=== PATIENT | male | born 1970 | race Caucasian/White ===

== ENCOUNTER 2017-02-22 06:50 | Inpatient (IN) | payer MEDICAID ==
--- NOTE | 2017-02-22 06:58 | EDPHY ---
H & P Stated Complaint: seizure, postictal on scene per EMS Time Seen by Provider: 02/22/17 06:52 HPI/ROS: Chief Complaint: Seizure HPI: 46-year-old male with a known seizure disorder and type 1 diabetes brought in from the retirement today after having a witnessed tonic-clonic seizure of unknown duration. On EMS arrival the patient was very postictal. He has had some nausea and vomiting. He has not been able to provide any history. He did pull out his IV. On arrival to the ED patient is awake alert and is admitting that he has a history of seizure disorder. Patient states he has been taking his medicines. ROS: 10 point Review of Systems is negative except as noted in the HPI. PMH: Type 1 diabetes Seizure disorder Hypertension Hyperlipidemia Developmental delay Social History: No smoking, no alcohol, no recreational drug use Family History: non-contributory Physical Exam: Gen: Awake, Alert, confused, diaphoretic HEENT: Nose: no rhinorrhea Eyes: PERRLA, EOMI Mouth: Moist mucosa tongue abrasions consistent with seizure Neck: Supple, no JVD Chest: nontender, lungs clear to auscultation Heart: S1, S2 normal, no murmur, tachycardic Abd: Soft, non-tender, no guarding Back: no CVA tenderness, no midline tenderness Ext: no edema, non-tender Skin: no rash Neuro: CN II-XII intact, Sensation grossly intact, Strength 5/5 in bilateral upper and lower extremities - Medical/Surgical History Hx Asthma: No Hx Chronic Respiratory Disease: No Hx Diabetes: No Hx Cardiac Disease: No Hx Renal Disease: No Hx Cirrhosis: No Hx Alcoholism: No Hx HIV/AIDS: No Hx Splenectomy or Spleen Trauma: No Other PMH: SEIZURE DISORDER, COLON CANCER, IDDM type 1 - Social History Smoking Status: Light smoker Constitutional: Initial Vital Signs Temperature (C) 36.4 C 02/22/17 06:54 Heart Rate 132 H 02/22/17 06:54 Respiratory Rate 16 02/22/17 06:54 Blood Pressure 108/95 H 02/22/17 06:54 O2 Sat (%) 88 L 02/22/17 06:54 O2 Delivery Mode Room Air Allergies/Adverse Reactions: No Known Allergies Allergy (Unverified 01/23/16 16:48) Home Medications: Medication Instructions Recorded Atorvastatin Calcium [Lipitor 20 20 mg PO DAILY 01/23/16 mg (*)] Divalproex ER [Depakote ER 500 MG 500 mg PO BID 01/23/16 (*)] LEVETIRACETAM [Keppra 1000 mg] 1,000 mg PO BID 01/23/16 Insulin Glargine [Lantus 100 10 units SC DAILY #1 vial 01/24/16 UNITS/ML (*)] Insulin Lispro [humALOG LISPRO 100 2 - 4 unit SC TIDMEAL #1 vial 01/24/16 units/ml (*)] Medical Decision Making - Diagnostics EKG Interpretation: ECG time 7:03 a.m. atrial fibrillation with a rate of 155 normal axis, prolonged QT with a QTC of 521, anterior lateral ischemia with ST depression in V3 through V6 ED Course/Re-evaluation: 705 ECG noted patient is in atrial fibrillation with a rate of 155 with lateral ischemia. Patient also vomiting. Will start diltiazem, Reglan, will also give Ativan as both antiemetic and for seizure prophylaxis. 729 heart rate down to 105 after 10 mg of diltiazem IV. Patient is unable to tell me what medications he takes for seizure. In reviewing his records he has received both Depakote and Keppra in the system here. I suspect he is compliant with his seizure medications because his blood sugars are in the 200s with type 1 diabetes indicates that he has been taking his normal insulin. Patient does assure me that he is compliant with medications. He has not have a elevation in his white blood cell count. Electrolytes show hypokalemia otherwise pretty unremarkable. I have paged the hospitalist and plan for admission for further evaluation. [address] Cantrell, hospitalist. Will admit to the step-down unit under Dr. Isabel. - Data Points Laboratory Results: Laboratory Results 02/22/17 07:00 02/22/17 07:00 02/22/17 02/22/17 02/22/17 07:00 07:00 07:00 WBC 8.83 10^3/uL 10^3/uL (3.80-9.50) RBC 5.64 10^6/uL 10^6/uL (4.40-6.38) Hgb 17.7 g/dL H g/dL (13.7-17.5) POC Hgb 18.0 gm/dL H gm/dL (14.5-17.3) Hct 51.2 % H % (40.0-51.0) POC Hct 53 % H % (42.8-50.6) MCV 90.8 fL fL (81.5-99.8) MCH 31.4 pg pg (27.9-34.1) MCHC 34.6 g/dL g/dL (32.4-36.7) RDW 11.8 % % (11.5-15.2) Plt Count 310 10^3/uL 10^3/uL (150-400) MPV 8.7 fL fL (8.7-11.7) Neut % (Auto) 35.4 % L % (39.3-74.2) Lymph % (Auto) 55.0 % H % (15.0-45.0) [place] % (Auto) 5.8 % % (4.5-13.0) Eos % (Auto) 2.0 % % (0.6-7.6) Baso % (Auto) 0.6 % % (0.3-1.7) Nucleat RBC Rel Count 0.0 % % (0.0-0.2) Absolute Neuts (auto) 3.12 10^3/uL 10^3/uL (1.70-6.50) Absolute Lymphs (auto) 4.86 10^3/uL H 10^3/uL (1.00-3.00) Absolute Monos (auto) 0.51 10^3/uL 10^3/uL (0.30-0.80) Absolute Eos (auto) 0.18 10^3/uL 10^3/uL (0.03-0.40) Absolute Basos (auto) 0.05 10^3/uL 10^3/uL (0.02-0.10) Absolute Nucleated RBC 0.00 10^3/uL 10^3/uL (0-0.01) Immature Gran % 1.2 % H % (0.0-1.1) Immature Gran # 0.11 10^3/uL H 10^3/uL (0.00-0.10) POC Sodium 144 mEq/L mEq/L (134-144) Sodium 143 mEq/L mEq/L (134-144) POC Potassium 3.1 mEq/L L mEq/L (3.3-5.0) Potassium 3.4 mEq/L L mEq/L (3.5-5.2) POC Chloride 103 mEq/L mEq/L (96-108) Chloride 104 mEq/L mEq/L (97-110) Carbon Dioxide 22 mEq/l mEq/l (22-31) Anion Gap 17 mEq/L H mEq/L (8-16) POC BUN < 3 mg/dL L mg/dL (7-23) BUN 4 mg/dL L mg/dL (7-23) Creatinine 0.8 mg/dL mg/dL (0.7-1.3) POC Creatinine 0.7 mg/dL L mg/dL (0.8-1.5) Estimated GFR > 60 Glucose 232 mg/dL H mg/dL (70-100) POC Glucose 233 mg/dL H mg/dL (70-100) Calcium 9.1 mg/dL mg/dL (8.5-10.4) Troponin I < 0.012 ng/mL ng/mL (0-0.034) Medications Given: Discontinued Medications Diltiazem HCl (Cardizem 25 Mg/5 Ml Vial) 20 mg IVP EDNOW ONE Stop: 02/22/17 07:09 Last Admin: 02/22/17 07:17 Dose: 10 mg Diltiazem HCl 125 mg/ Dextrose 125 mls @ 0 mls/hr IV EDNOW ONE; As Directed PRN Reason: Protocol Stop: 02/22/17 07:09 Last Admin: 02/22/17 07:39 Dose: 125 mls Sodium Chloride (Ns) 1,000 mls @ 0 mls/hr IV ONCE ONE PRN Reason: Wide Open Stop: 02/22/17 07:11 Last Admin: 02/22/17 07:41 Dose: 1,000 mls Lorazepam (Ativan Injection) 1 mg IVP EDNOW ONE Stop: 02/22/17 07:09 Last Admin: 02/22/17 07:18 Dose: 1 mg Metoclopramide HCl (Reglan Injection) 10 mg IVP EDNOW ONE Stop: 02/22/17 07:09 Last Admin: 02/22/17 07:18 Dose: 10 mg Point of Care Test Results: 02/22/17 07:00 POC Sodium 144 POC Potassium 3.1 L POC Chloride 103 POC BUN < 3 L POC Creatinine 0.7 L POC Glucose 233 H Departure - Departure Disposition: [facility] Inpatient Acute Clinical Impression: Atrial fibrillation, Seizure disorder Referrals: Patient,NotPresent [Primary Care Provider] - As per Instructions
--- NOTE | 2017-02-22 07:05 | CPEKG ---
Heart Rate: 155 RR Interval: 387 QRSD Interval: 84 QT Interval: 324 QTC Interval: 521 QRS [place]: 45 T Wave [place]: 20 EKG Severity - ABNORMAL ECG - EKG Impression: ATRIAL FIBRILLATION, V-RATE 127-172 EKG Impression: ST DEPRESSION, CONSIDER ISCHEMIA, ANT-LAT LDS EKG Impression: PROLONGED QT INTERVAL Electronically Signed By: Jaz Beyer 22-Feb-2017 07:09:11
[2017-02-22] MEDS ORDERED: METOCLOPRAMIDE 10 MG/2 ML VIAL IVP ONE (07:08)
[2017-02-22] MEDS ORDERED: LORazepam 2 MG/ML INJ IVP ONE (07:08)
[2017-02-22] MEDS ORDERED: DILTIAZEM 25 MG/5 ML VIAL IVP ONE (07:08)
[2017-02-22] MEDS ORDERED: DILTIAZEM 125 MG in D5W 125 ML IV ONE (07:08)
[2017-02-22] MEDS ORDERED: NS 1,000 ML IV ONE (07:10)
[2017-02-22 07:27] LABS: ANION GAP 17 mEq/L (8-16); CALCIUM 9.1 mg/dL (8.5-10.4); CARBON DIOXIDE 22 mEq/l (22-31); CHLORIDE 104 mEq/L (97-110); CREATININE 0.8 mg/dL (0.7-1.3); GLOMERULAR FILTRATION RATE > 60; GLUCOSE 232 mg/dL (70-100); POTASSIUM 3.4 mEq/L (3.5-5.2); SODIUM 143 mEq/L (134-144)
[2017-02-22 07:28] LABS: % IMMATURE GRANULYOCYTES 1.2 % (0.0-1.1); ABSOLUTE IMMATURE GRANULOCYTES 0.11 10^3/uL (0.00-0.10); ADD DIFF? NO; ADD MORPH? NO; ADD SCAN? NO; ATYPICAL LYMPHOCYTE FLAG 20 (0-99); FRAGMENT RBC FLAG 0 (0-99); HEMATOCRIT 51.2 % (40.0-51.0); HEMOGLOBIN 17.7 g/dL (13.7-17.5); LEFT SHIFT FLG 10 (0-99); LIPEMIA HEMOLYSIS FLAG 90 (0-99); MEAN CELL HEMOGLOBIN 31.4 pg (27.9-34.1); MEAN CELL HEMOGLOBIN CONCENTR. 34.6 g/dL (32.4-36.7); MEAN CELL VOLUME 90.8 fL (81.5-99.8); MEAN PLATELET VOLUME 8.7 fL (8.7-11.7); PLATELET CLUMPS FLAG 20 (0-99); PLATELET COUNT 310 10^3/uL (150-400); RED BLOOD CELL COUNT 5.64 10^6/uL (4.40-6.38); RED CELL DISTRIBUTION WIDTH 11.8 % (11.5-15.2)
[2017-02-22 07:39] LABS: TROPONIN I < 0.012 ng/mL (0-0.034)
[2017-02-22] MEDS ORDERED: LORazepam 2 MG/ML INJ IVP PRN (09:16)
[2017-02-22] MEDS ORDERED: PROTOCOL POTASSIUM 1 DOSE MISC PRN ×2 (09:16)
[2017-02-22] MEDS ORDERED: PROTOCOL CALCIUM 1 DOSE IV PRN (09:16)
[2017-02-22] MEDS ORDERED: D50W 25 GM/50 ML SYR IVP PRN (09:16)
[2017-02-22] MEDS ORDERED: PROTOCOL MAGNESIUM 1 DOSE IV PRN (09:16)
[2017-02-22] MEDS ORDERED: ACETAMINOPHEN 325 MG TAB PO PRN (09:16)
[2017-02-22] MEDS ORDERED: HYDROmorphONE/DILAUDID 1 MG/ML SYR IVP PRN (09:16)
[2017-02-22] MEDS ORDERED: PROTOCOL K PHOSPHATE 1 DOSE IV PRN (09:16)
[2017-02-22] MEDS ORDERED: ONDANSETRON 4 MG/2 ML VIAL IVP PRN (09:16)
[2017-02-22] MEDS ORDERED: ONDANSETRON DISINTEGRATING 4 MG TAB PO PRN (09:16)
[2017-02-22] MEDS ORDERED: ALBUTEROL 3 ML DEYVIAL IH PRN (09:16)
[2017-02-22] MEDS ORDERED: levETIRAcetam 1,000 MG in NS 100 ML IV ONE (09:21)
[2017-02-22] MEDS ORDERED: DILTIAZEM 125 MG in D5W 125 ML IV SCH (10:00)
[2017-02-22] MEDS ORDERED: ALTEPLASE 2 MG VIAL IVP PRN (11:05)
--- NOTE | 2017-02-22 11:18 | CPEKG ---
Heart Rate: 79 RR Interval: 759 QRSD Interval: 88 QT Interval: 392 QTC Interval: 450 QRS [place]: -17 T Wave [place]: 25 EKG Severity - ABNORMAL ECG - EKG Impression: ATRIAL FIBRILLATION, V-RATE 66-100 EKG Impression: BORDERLINE LEFT AXIS DEVIATION Electronically Signed By: Jacky Fish 23-Feb-2017 06:52:27
--- NOTE | 2017-02-22 11:48 | PDCONSULT ---
[employer] Note: HOSPITAL NEUROLOGY CONSULT REQUESTING: Halley Pierre MD REASON: seizure HPI: This is a 46-year-old gentleman with a history of epilepsy, cognitive developmental delay, hypertension, hyperlipidemia, DM1 who presented to our facility today due to a witnessed generalized convulsion. The patient resides at the [facility] and early this morning apparently had a witnessed generalized convulsion. The patient is amnestic of these events. He states that he recalls awakening in the emergency department feeling very shaky. He states he is indeed homeless and gets his neurologic care from a provider and [place]. He endorses compliance with valproic acid ER 500 mg twice daily as well as levetiracetam 1000 mg twice daily. He states his last seizure was about a year ago and he is unsure of the circumstances surrounding this breakthrough seizure. Patient states today he is feeling back to his baseline, just a little bit tired. He denies any focal neurologic deficits. He denies any illness or toxic ingestions this past week. On his emergency room evaluation, patient was found to be in new onset atrial fibrillation with rapid ventricular rate and possible cardiac ischemia for which he is currently being stabilized from a cardiac perspective. ROS: As per the HPI, otherwise a complete 12 point ROS was performed and is negative ALLERGIES AND MEDS: As recorded in the EMR - reviewed and reconciled PFSH: As per the intake H&P by Dr. Pierre from today EXAM: VS reviewed in EMR GEN: WDWN laying in NAD HEENT: NCAT, sclera anicteric, conjunctiva not injected, MMM, oropharynx clear, no scalp tenderness, missing multiple teeth NECK: supple, nontender, no meningismus CV: RRR s1 s2 wo m/r/c/g. Carotid pulses 2+ wo bruit NEURO: MS: a bit drowsy, but maintains attention during conversation. Oriented to all spheres. Speech nondysarthric. No language disturbance. Follows commands. Attends to both sides. Recent/remote memory grossly intact. Mood euthymic. Adequate fund of knowledge. CN: pupils 4mm round and reactive. Intolerant of fundoscopy. VFF. Primary gaze centered. Some restricted upgaze, but otherwise full ocular motility. Facial sensation preserved. Face symmetric. Hearing grossly intact to finger rub. Palatoglossal movements intact. Shoulder shrug and head turn strong. MOTOR: normal bulk/tone. No adventitial movements. Full power throughout. SENSORY: intact to all modalities throughout. No extinction. COORD: no ataxia FN/HS. Fanta preserved. Romberg neg. REFLEX: plantars down. No clonus. DTRS trace. GAIT: deferred to PT safety eval DATA REVIEW: Labs reviewed in EMR PERSONALLY INTERPRETED RESULTS AND DATA: None IMPRESSION AND RECOMMENDATIONS: // BREAKTHROUGH SEIZURE // NEW ONSET AFIB RVR Patient with breakthrough seizure without any obvious provocative factor. He endorses compliance with his anti-seizure medications. No obvious toxic/ metabolic disturbance. Denies illicit substance use. ? triggered by stress from cardiac ischemia/arrhythmia. Conversely, could have had an embolic shower with cortical involvement triggering seizure in a patient at risk for seizure. Will check VPA and LVT levels to assess for compliance. Cont current home dosing of VPA and LVT. Add UDS. MRI brain wo to evaluate for subclinical cortical ischemia in the setting of new onset afib with breakthrough seizure. Cont seizure safety precautions. Supportive measures and further cardiac, metabolic, infectious screening/ stabilization per primary team. He was counseled on seizure safety precautions, such as not climbing heights, not swimming/tub bathing alone, not operating heavy machinery, and not performing other activities that could put himself or others in harm's way. He was also counseled on driving restrictions for 90 days per [place] state law.
[2017-02-22] MEDS ORDERED: VALPROATE SODIUM 500 MG in D5W 50 ML IV SCH (12:00)
--- NOTE | 2017-02-22 12:31 | PDGENHP ---
History and Physical - Chief Complaint seizure - History of Present Illness 46 yo M with mild DD, sz d/o and DM1 admitted s/p seizure prior to admission. Patient notes that he has been compliant with his seizure medications although he also admits that he does not know what they are. He currently resides in a alf although he has parents in [place] who he states are very involved in his care and help him with his medications etc. He states that he felt fine yesterday, but today felt a bit shaky, as if he were possibly getting ill or about to have a fever, and the next thing he knew he was in the hospital after being told he had a seizure. He was found to be in a fib w/rvr in the ER. He does not think he has ever had a fib or other hear issues in the past. He denies fevers or chills, denies pain anywhere, denies any sob or chest pain. He does not recall the last time he had a seizure but thinks it has been a long time. He has a neurologist that he sees somewhere in [place] and cannot recall that doctors name either. History Information - Allergies/Home Medication List Allergies/Adverse Reactions: No Known Allergies Allergy (Unverified 01/23/16 16:48) Home Medications: Atorvastatin Calcium [Lipitor 20 mg (*)] 20 mg PO DAILY 01/23/16 [Last Taken ] LEVETIRACETAM [Keppra 1000 mg] 1,000 mg PO BID 01/23/16 [Last Taken 01/23/16] Divalproex Sodium [Depakote] 500 mg PO BID 02/22/17 [Last Taken Unknown] FLUoxetine [Prozac 20 MG (*)] 40 mg PO BID 02/22/17 [Last Taken Unknown] I have personally reviewed and updated: family history, medical history, social history, surgical history - Past Medical History cancer (colon per chart review), diabetes type 1, hyperlipidemia, psychiatric history (depression), seizures - Surgical History Reports: no pertinent surgical hx - Family History Positive for: non-pertinent - Social History Smoking Status: Light smoker Alcohol Use: None Drug Use: None Additional social history: homeless, residing in alf, has parents involved in his care Review of Systems ROS: 10pt was reviewed & negative except for what was stated in HPI & below Physical Exam Temp Pulse Resp BP Pulse Ox 36.9 C 90 16 110/78 98 02/22/17 08:23 02/22/17 08:23 02/22/17 08:23 02/22/17 08:23 02/22/17 08:23 Constitutional: no apparent distress, appears nourished Eyes: PERRL Ears, Nose, Mouth, Throat: moist mucous membranes, hearing normal Cardiovascular: irregularly irregular, tachycardia, No edema Respiratory: no respiratory distress, no rales or rhonchi Gastrointestinal: normoactive bowel sounds, soft, non-tender abdomen Genitourinary: no bladder tenderness Skin: warm, normal color Musculoskeletal: full muscle strength Neurologic: AAOx3 Psychiatric: interacting appropriately, not anxious, not encephalopathic Lab Data & Imaging Review 02/22/17 07:00 02/22/17 07:00 WBC 8.83 10^3/uL (3.80-9.50) 02/22/17 07:00 RBC 5.64 10^6/uL (4.40-6.38) 02/22/17 07:00 Hgb 17.7 g/dL (13.7-17.5) H 02/22/17 07:00 POC Hgb 18.0 gm/dL (14.5-17.3) H 02/22/17 07:00 Hct 51.2 % (40.0-51.0) H 02/22/17 07:00 POC Hct 53 % (42.8-50.6) H 02/22/17 07:00 MCV 90.8 fL (81.5-99.8) 02/22/17 07:00 MCH 31.4 pg (27.9-34.1) 02/22/17 07:00 MCHC 34.6 g/dL (32.4-36.7) 02/22/17 07:00 RDW 11.8 % (11.5-15.2) 02/22/17 07:00 Plt Count 310 10^3/uL (150-400) 02/22/17 07:00 MPV 8.7 fL (8.7-11.7) 02/22/17 07:00 Neut % (Auto) 35.4 % (39.3-74.2) L 02/22/17 07:00 Lymph % (Auto) 55.0 % (15.0-45.0) H 02/22/17 07:00 [place] % (Auto) 5.8 % (4.5-13.0) 02/22/17 07:00 Eos % (Auto) 2.0 % (0.6-7.6) 02/22/17 07:00 Baso % (Auto) 0.6 % (0.3-1.7) 02/22/17 07:00 Nucleat RBC Rel Count 0.0 % (0.0-0.2) 02/22/17 07:00 Absolute Neuts (auto) 3.12 10^3/uL (1.70-6.50) 02/22/17 07:00 Absolute Lymphs (auto) 4.86 10^3/uL (1.00-3.00) H 02/22/17 07:00 Absolute Monos (auto) 0.51 10^3/uL (0.30-0.80) 02/22/17 07:00 Absolute Eos (auto) 0.18 10^3/uL (0.03-0.40) 02/22/17 07:00 Absolute Basos (auto) 0.05 10^3/uL (0.02-0.10) 02/22/17 07:00 Absolute Nucleated RBC 0.00 10^3/uL (0-0.01) 02/22/17 07:00 Immature Gran % 1.2 % (0.0-1.1) H 02/22/17 07:00 Immature Gran # 0.11 10^3/uL (0.00-0.10) H 02/22/17 07:00 POC Sodium 144 mEq/L (134-144) 02/22/17 07:00 Sodium 143 mEq/L (134-144) 02/22/17 07:00 POC Potassium 3.1 mEq/L (3.3-5.0) L 02/22/17 07:00 Potassium 3.4 mEq/L (3.5-5.2) L 02/22/17 07:00 POC Chloride 103 mEq/L (96-108) 02/22/17 07:00 Chloride 104 mEq/L (97-110) 02/22/17 07:00 Carbon Dioxide 22 mEq/l (22-31) 02/22/17 07:00 Anion Gap 17 mEq/L (8-16) H 02/22/17 07:00 POC BUN < 3 mg/dL (7-23) L 02/22/17 07:00 BUN 4 mg/dL (7-23) L 02/22/17 07:00 Creatinine 0.8 mg/dL (0.7-1.3) 02/22/17 07:00 POC Creatinine 0.7 mg/dL (0.8-1.5) L 02/22/17 07:00 Estimated GFR > 60 02/22/17 07:00 Glucose 232 mg/dL (70-100) H 02/22/17 07:00 POC Glucose 153 mg/dL (70-100) H 02/22/17 08:51 Calcium 9.1 mg/dL (8.5-10.4) 02/22/17 07:00 Troponin I < 0.012 ng/mL (0-0.034) 02/22/17 07:00 Visualized and Interpreted EKG results: Yes EKG additional interpertation: atrial fibrillation, LAD, rate in 110s Assessment & Plan Assessment: 46 yo M with hx of DM, DD and seizure d/o admitted with seizure and a fib w/rvr # seizure: breakthrough seizure while on medications including keppra/depakote. Patient denies non compliance but hx limited by patients cognitive dysfunction related to DD. Checking levels to determine if truly compliant. Neuro consulted and plan for brain MRI to eval for other structural issues possibly playing a role versus embolic phenomenon related to a fib. Sz precautions, restart home meds. # a fib w/rvr: new onset as far as we know, though patient denies any sxs and has significantly limited memory so uncertain if that is indeed the case. Rate improved on dilt gtt, will continue. Will obtain serial ecg/serial trops and echocardiogram to evaluate for structural abnormalities or e/o ischemia. Check tsh, w/u for infxn negative so far. # DM: presumably type 1 by hospital records available, appears to be well controlled on insulin glargine alone but will check a1c, sliding scale insulin started # HLD: continue statin # depression: continue prozac # dispo: IP status, multiple active comorbid presenting issues requiring IP stay , will monitor in Step down unit today Patient new to my care. Old records reviewed and summarized as above. Care plan reviewed with Dr. James and multidisciplinary care team as above.
[2017-02-22 12:45] LABS: IONIZED CALCIUM 1.17 MMOL/L (1.12-1.30)
[2017-02-22] MEDS: INSULIN LISPRO 100 UNIT/ML SC SCH ×2 (13:01→17:12)
[2017-02-22 13:11] LABS: MAGNESIUM 1.7 mg/dL (1.6-2.3)
[2017-02-22] MEDS ORDERED: MAGNESIUM SULF 1 GM/DEXTROSE 100 ML IV ONE (13:26)
[2017-02-22] MEDS: NS 1,000 ML IV SCH ×2 (13:39→21:20)
[2017-02-22 13:55] LABS: ALANINE AMINOTRANSFERASE 32 IU/L (21-72); ALBUMIN 3.5 g/dL (3.5-5.0); ALKALINE PHOSPHATASE 68 IU/L (38-126); ASPARTATE AMINOTRANSFERASE 25 IU/L (17-59); BILIRUBIN,TOTAL 0.5 mg/dL (0.1-1.4); BILIRUBIN-CONJUGATED 0.2 mg/dL (0.0-0.5); BILIRUBIN-UNCONJUGATED 0.3 mg/dL (0.0-1.1); POTASSIUM 3.4 mEq/L (3.5-5.2); TOTAL PROTEIN 6.9 g/dL (6.3-8.2)
[2017-02-22 14:47] LABS: TROPONIN I 0.036 ng/mL (0-0.034)
--- NOTE | 2017-02-22 15:21 | ECHO ---
[id number] + + [address] : : [place] [address] : : [phone] + + Adult Echocardiographic Report + + :Name: LUBA REYES SStudy Date: 02/22/2017 10:52 AM : : Hospital Admission Number: [id number] Location: 246: :: 1970 Gender: Male Height: 73 in : :Age: 46 yrs Race: WH Weight: 199 lb : :Reason For Study: Eval LV Fx : : BSA: 2.1 meters2 : :History: Seizure, DM, New onset afib : + + MMode/2D Measurements \T\ Calculations IVSd: 0.96 cm LVIDd: 4.4 cm FS: 32.8 % Ao root diam: 3.5 cm LVPWd: 1.0 cm LVIDs: 3.0 cm EDV(Teich): 88.5 ml ACS: 2.1 cm ESV(Teich): 34.1 ml EF(Teich): 61.4 % Normal Measurement Values: + + :LVIDd (3.5-5.7cm) IVSd (0.6-1.1cm) LVPWd (0.6-1.1cm) Aortic Root (2.0-3.7cm)Left Atrium (1.5-4.0cm): :LV Vol(d) (76-115ml) LV Vol(s) (29-48ml) Ejec Fraction (50-65%)PV Juarez (0.6- 1.2m/s) TV Juarez (0.4-1.0m/s) : :MV E Juarez (0.8-1.0m/s)MV A Juarez (0.3-1.0m/s)LVOT Juarez (0.7-1.2m/s) Asc Ao Juarez ( 0.9-1.8m/s) : + + Doppler Measurements \T\ Calculations MV E max juarez: Ao V2 max: LV V1 max: PA V2 max: 75.5 cm/sec 122.2 cm/sec 90.8 cm/sec 96.4 cm/sec Ao max P.0 mmHgLV V1 max PG: PA max P.3 mmHg 3.7 mmHg TR max juarez: 270.1 cm/sec TR max P.2 mmHg RAP systole: 5.0 mmHg RVSP(TR): 34.2 mmHg Left Ventricle The left ventricle is normal in size. There is normal left ventricular wall thickness. The left ventricular ejection fraction is normal. There is Doppler evidence for diastolic dysfunction. Ejection Fraction = 62%. No regional wall motion abnormalities noted. Right Ventricle The right ventricular cavity is small. Atria The left atrial size is normal. Right atrial size is normal. Mitral Valve The mitral valve is normal in structure and function. There is no mitral regurgitation noted. Tricuspid Valve There is trace tricuspid regurgitation. Right ventricular systolic pressure is normal. Aortic Valve The aortic valve is normal in structure and function. The aortic valve is trileaflet. There is no aortic stenosis. There is no aortic insufficiency. Pulmonic Valve The pulmonic valve is not well visualized. There is no pulmonic valvular regurgitation. Great Vessels The aortic root is normal size. Pericardium/Pleural There is no pericardial effusion. The rhythm is atrial fibrillation. Conclusion A complete two-dimensional transthoracic echocardiogram was performed (2D, M-mode, Doppler and color flow Doppler). (1) Left ventricular systolic ejection fraction was normal (60-65%) - normal wall motion (2) No left ventricular hypertrophy (3) Diastolic dysfunction wa present (4) Normal right ventricular size and function (5) Normal atrial dimensions (6) Grossly normal mitral valve (7) Trileaflet aortic valve without sclerosis or insufficiency (8) Physiologic tricuspid regurgitation - RVSP was within normal limits (9) Poor visualization of the pulmonic valve (10) No comparison echocardiograms (11) The rhythm is atrial fibrillation. Final Reading Physician: Alberta Vazquez signed on 02/22/2017 03:20 PM Ordering Physician: Halley Pierre Performed By: Jaswant Cornell, TERRENCECS
[2017-02-22] MEDS: POTASSIUM Cl (KCl) 50 ML IV SCH ×3 (16:00→17:14)
--- NOTE | 2017-02-22 16:45 | PDCONSULT ---
Pattern Storage Clerk Note: Formal consult with cardiology in the morning. Briefly: Echocardiogram was grossly normal Initial troponin with mild elevation noted Spontaneous conversion from atrial fibrillation to sinus bradycardia - uncertain duration of this arrhythmia - - recommendations for anticoag coverage overnight with full strength Lovenox (not DVT prophylaxis alone) Likely need for 30 day event monitor and outpatient follow up I spoke with the parents, nursing staff, and crit care attending about these plans The patient was sleeping, but I will speak with the patient tomorrow
--- NOTE | 2017-02-22 16:58 | GCON ---
[f rep st] CONSULTATION CRITICAL CARE CONSULTATION DATE OF CONSULTATION: 02/22/2017 REASON FOR CONSULTATION: Intensive care unit evaluation and management following a seizure. This i s associated with new onset atrial fibrillation. HISTORY: The patient is a 46-year-old gentleman who has a known seizure disorder and is on anti-sei zure medications. He lives in the [facility]. His parents apparently supply him his medicatio ns on a regular basis. It is unclear if he misses doses. He was apparently witnessed to have a sei zure early today. Paramedics were called. He was found to be in atrial fibrillation. He was broug ht to the emergency department and subsequently admitted to the intensive care unit. In the ICU, he states he feels okay. He wants to "get some rest." He denies pain or shortness of b reath. He does not recall having a seizure. He reports that he thinks he has been taking his medic ations on a regular basis, but cannot recall exactly what these are. PAST MEDICAL HISTORY: Remarkable for the seizure disorder, developmental delay, homelessness, insul in-dependent diabetes, and hyperlipidemia. Anti-seizure medications, by report, included Keppra 1000 mg b.i.d., Depakote 500 mg b.i.d. He is o n Lantus 10 units at night, atorvastatin, and Prozac. SOCIAL HISTORY: [facility]. He denies drinking alcohol. He has smoked cigarettes in the past, but relatively minimally. FAMILY HISTORY: Noncontributory. REVIEW OF SYSTEMS: Negative except as mentioned above. He denies known heart disease, thromboembol ic disease, renal disease, pulmonary disease, or other issues. 10-point review of systems is otherw ise negative. PHYSICAL EXAMINATION: GENERAL: Reveals a gentleman who is slightly somnolent, but easily arousable and responsive. VITAL SIGNS: Blood pressure is 110/78, heart rate 90 with atrial fibrillation on the monitor. He is on room air. Saturations are 98%. He is afebrile. HEENT: Unremarkable for ly mphadenopathy or thyromegaly. Mucous membranes are somewhat dry. There was no obvious mouth trauma . CHEST: Clear bilaterally. Excursions are excellent. HEART: Irregular. There are no significa nt murmurs, no gallops. ABDOMEN: Soft, nontender. Bowel sounds are somewhat reduced, but present. There is no organomegaly. EXTREMITIES: Unremarkable for edema, cords, or tenderness. SKIN: Wit hout rash or significant lesions or wounds. NEUROLOGIC: Status is intact. He moves all extremitie s with good and equal strength, has sensation. He is oriented x3. ASSESSMENT: 1. Seizure: The patient does have a history of an underlying seizure disorder and is on Keppra and Depakote. It is unclear whether he may have missed some doses of medications, and his seizure may be secondary to that. A Keppra level is pending from admission. Depakote/valproic acid level was s ubtherapeutic at 25 on admission. Neurology has been consulted. An MRI will be done. 2. New onset atrial fibrillation: Cardiac echo is within normal limits regarding left and right ve ntricular function. He has been placed on a diltiazem drip. Rate control has been achieved. If he does not convert, amiodarone could be considered. Cardiology consultation could also be obtained a nd cardioversion considered. There are likely no contraindications to anticoagulation; however, I w ould like to see the results of his MRI first. 3. Diabetes mellitus, on insulin: Sliding scale insulin will be ordered. 4. Metabolic: Hypokalemia was present on admission. He is receiving replacement per protocols. PLAN/RECOMMENDATIONS: The patient will be kept in the intensive care unit. Seizure precautions les l be maintained. He will be given a loading dose of Keppra. An additional dose of Depakote will be given as well. An additional dose of valproic acid, given intravenously, was given in the emergenc y room. Diltiazem will be continued. Full dose anticoagulation may be needed; however, I would lik e to see his MRI first. Subcutaneous Lovenox will be given for now. Insulin will be continued with Lantus given at night and sliding scale given during the day. Potassium will be repleted. Further plans and recommendations will be made based on his progress over the next 12-24 hours. /[id number]/MODL
[2017-02-22 19:00] LABS: POTASSIUM 4.5 mEq/L (3.5-5.2)
[2017-02-22 19:14] LABS: TROPONIN I 0.078 ng/mL (0-0.034)
[2017-02-22] MEDS ORDERED: LEVETIRACETAM 1000 MG PO SCH (21:00)
[2017-02-22] MEDS ORDERED: levETIRAcetam 1,000 MG in NS 100 ML IV SCH (21:00)
[2017-02-22] MEDS ORDERED: levETIRAcetam 500 MG TAB PO SCH (21:00)
[2017-02-22] MEDS: levETIRAcetam 500 MG TAB PO SCH (21:20)
[2017-02-22] MEDS: ENOXAPARIN 80 MG/0.8 ML SYR SC SCH (21:20)
[2017-02-22] MEDS: DIVALPROEX NA 500 MG TAB PO SCH (21:21)
[2017-02-22] MEDS: FLUoxetine 20 MG CAP PO SCH (21:21)
[2017-02-23 00:38] LABS: COLOR YELLOW; LEUKOCYTE ESTERASE,URINE NEGATIVE (NEGATIVE); NITRITE,URINE NEGATIVE (NEGATIVE)
[2017-02-23 03:37] LABS: PHENCYCLIDINE URINE BCH < 6 ng/ml (NEGATIVE); PHENCYCLIDINE URINE BCH NEGATIVE (NEGATIVE); TETRAHYDROCANNABINOL URINE < 5 ng/mL (NEGATIVE); TETRAHYDROCANNABINOL URINE NEGATIVE (NEGATIVE)
[2017-02-23] MEDS: NS 1,000 ML IV SCH ×2 (05:21→09:26)
[2017-02-23 05:45] LABS: IONIZED CALCIUM 1.13 MMOL/L (1.12-1.30)
[2017-02-23 05:46] LABS: ADD MORPH? NO; ADD SCAN? YES; ATYPICAL LYMPHOCYTE FLAG 0 (0-99); FRAGMENT RBC FLAG 0 (0-99); HEMATOCRIT 39.7 % (40.0-51.0); HEMOGLOBIN 13.7 g/dL (13.7-17.5); LEFT SHIFT FLG 0 (0-99); LIPEMIA HEMOLYSIS FLAG 90 (0-99); MEAN CELL HEMOGLOBIN 31.9 pg (27.9-34.1); MEAN CELL HEMOGLOBIN CONCENTR. 34.5 g/dL (32.4-36.7); MEAN CELL VOLUME 92.3 fL (81.5-99.8); MEAN PLATELET VOLUME 8.8 fL (8.7-11.7); PLATELET CLUMPS FLAG 20 (0-99); PLATELET COUNT 175 10^3/uL (150-400); RED CELL DISTRIBUTION WIDTH 12.1 % (11.5-15.2)
[2017-02-23 06:06] LABS: ANION GAP 6 mEq/L (8-16); CALCIUM 8.1 mg/dL (8.5-10.4); CARBON DIOXIDE 27 mEq/l (22-31); CHLORIDE 108 mEq/L (97-110); CREATININE 0.7 mg/dL (0.7-1.3); GLOMERULAR FILTRATION RATE > 60; GLUCOSE 101 mg/dL (70-100); MAGNESIUM 1.9 mg/dL (1.6-2.3); POTASSIUM 4.2 mEq/L (3.5-5.2); SODIUM 141 mEq/L (134-144)
[2017-02-23 06:17] LABS: TROPONIN I 0.058 ng/mL (0-0.034)
[2017-02-23 07:06] LABS: ADD DIFF? YES; SCAN POSITIVE
[2017-02-23 07:31] LABS: PLATELET ESTIMATE ADEQUATE (ADEQ)
[2017-02-23 07:33] LABS: SMUDGE CELLS 1+
[2017-02-23] MEDS: INSULIN LISPRO 100 UNIT/ML SC SCH ×3 (08:24→18:08)
[2017-02-23] MEDS: ENOXAPARIN 80 MG/0.8 ML SYR SC SCH ×2 (08:33→20:03)
[2017-02-23] MEDS: FLUoxetine 20 MG CAP PO SCH ×2 (08:33→20:03)
[2017-02-23] MEDS: ATORVASTATIN CALCIUM 20 MG TAB PO SCH (08:33)
[2017-02-23] MEDS: DIVALPROEX NA 500 MG TAB PO SCH ×2 (08:33→20:03)
[2017-02-23] MEDS: levETIRAcetam 500 MG TAB PO SCH ×2 (08:34→20:03)
[2017-02-23] MEDS: INSULIN GLARGINE 100 UNITS/ML SYRINGE SC SCH (08:36)
--- NOTE | 2017-02-23 08:55 | NEUROPROG ---
Assessment: INTERVAL HISTORY: No seizures since admission. Still feeling tired, but no new symptoms. EXAM: Unchanged since admission DATA REVIEW: MRI brain wo personally reviewed - nothing acute, incidental note of cavum septum pellucidum. Labs reviewed - troponin trending up with peak last night at 0.078. VPA level 25. LVT level pending. IMPRESSION: // BREAKTHROUGH SEIZURE // HX EPILEPSY // HX PERSISTENT COGNITIVE DELAY // NEW ONSET AFIB RVR - RESOLVED // TROPONINEMIA Patient with a breakthrough seizure in the setting on new onset afib RVR. Afib RVR has resolved, but troponins trended upwards over yesterday. Unknown duration of afib prior to presentation, but MRI brain shows no embolic strokes involving the cortex or other regions which could have provoked a seizure. His VPA level is 25, indicating he has been taking his medicine to some degree. Levetiracetam level is pending. Suspect his breakthrough may have been provoked by cardiac ischemia with subsequent stress reaction/catecholamine surging. No other obvious provocative factors. Would continue with his home anti-seizure medication dosing regimen. Would not adjust medication based on levels alone - prior measures reviewed in EMR show he generally runs subtherapeutic (level does not indicate effectiveness of medication). Cont with seizure precautions as previously outlines. He should followup with his outpatient neurologist. Cont supportive measures and cardiac evaluation per primary team/cardiology. 25 mins in direct patient care activities on the floor. Objective: Vital Signs Temp Pulse Resp BP Pulse Ox 37.0 C 68 11 L 102/66 93 02/23/17 08:00 02/23/17 08:00 02/23/17 08:00 02/23/17 08:00 02/23/17 08:00 Laboratory Results 02/23/17 05:17 02/23/17 05:17 02/22/17 02/23/17 02/24/17 05:59 05:59 05:59 Intake Total 4016 Output Total 300 Balance 3716 Allergies/Adverse Reactions: No Known Allergies Allergy (Unverified 01/23/16 16:48)
[2017-02-23] MEDS ORDERED: ENOXAPARIN 40 MG/0.4 ML SYR SC SCH (09:00)
--- NOTE | 2017-02-23 09:30 | PDCARCONS ---
Cardiology Consult Reason for Consult: Atrial fibrillation and mild cardiac biomarker elevation Chief Complaint: None per patient Requesting Physician: Hospitalist History of Present Illness: Patient is a 46 y/o male with history of HTN, HLP, DM (type I), seizures (on medical therapy), JUAN DIEGO (untreated, and likely unformally diagnosed), and colon cancer, who presented to [facility] via EMS after witnessed tonic clonic seizure. Duration of the seizure was unknown. Patient voiced an awareness of confusion post seizure. No voiced complaints of chest pains or pressure. No PND or orthopnea. No recent fevers, chills, nausea, or emesis. Overall, the patient feels that he has been doing well. Currently lives in the homeless half-way and does get some sleep there. Food at the half-way is "fair". Both parents were present with the patient yesterday (and live in town). No history of CAD or cardiac events in the past. Mother with strong CAD history (CABG many years ago ). No regular or routine exercise. Patient reports not having a seizure for "many years". Yesterday, in the ER, the patient was noted to be in atrial fibrillation with rapid ventricular response. Given this arrhythmia, the patient was started on IV CCB therapy, and rates slowed with this therapy. Last night, when the patient was seen briefly, the patient converted to normal sinus rhythm and sinus bradycardia. Given slow heart rates and hypotension, the IV CCB therapy was reduced by 50%, and by the time I was seeing him last night, we stopped the therapy altogether. Today, the patient remains in normal sinus rhythm/sinus bradycardia. Concerns about CVA led to cessation of DVT dose of lovenox in favor of weight based protocol (1mg/kg at 80 mg SQ BID dosing). History Information - Allergies/Home Medication List Allergies/Adverse Reactions: No Known Allergies Allergy (Unverified 01/23/16 16:48) Home Medications: Atorvastatin Calcium [Lipitor 20 mg (*)] 20 mg PO DAILY 01/23/16 [Last Taken ] LEVETIRACETAM [Keppra 1000 mg] 1,000 mg PO BID 01/23/16 [Last Taken 01/23/16] Divalproex Sodium [Depakote] 500 mg PO BID 02/22/17 [Last Taken Unknown] FLUoxetine [Prozac 20 MG (*)] 40 mg PO BID 02/22/17 [Last Taken Unknown] I have personally reviewed and updated: family history, medical history, social history, surgical history - Past Medical History atrial fibrillation, cancer, diabetes type 1, hypertension, hyperlipidemia, psychiatric history, seizures - Surgical History Reports: colectomy - Family History Positive for: CAD, hypertension - Social History Smoking Status: Light smoker Alcohol Use: None Drug Use: None Cardiac History - Cardiac History Cardiac Risk Factors: hypertension (>140/90), lipidemia, diabetes mellitus, current cigarette smoker, male Timing/Duration: Minutes Severity: severe Severity Scale: 8 Activities at Onset: activity Modifying Factors: improves with: lying down, oxygen, rest Associated Symptoms: seizure TRESSA Risk Evaluation age greater or equal to 65: no greater or equal to 3 CAD risk factors: yes known CAD(stenosis greater or eqaul to 50%): no ASA use in past 7 days: no severe angina(greater or equal to 2 episodes in 24hrs): no EKG ST changes greater or equal to 0.5mm: no positive cardiac marker: yes Total Score: 2 TRESSA Score: 8.3% risk Physical Exam Temp Pulse Resp BP Pulse Ox 37.0 C 68 11 L 102/66 93 02/23/17 08:00 02/23/17 08:00 02/23/17 08:00 02/23/17 08:00 02/23/17 08:00 O2 (L/minute) 2 Constitutional: no apparent distress, appears nourished, not in pain, unkempt Eyes: PERRL Ears, Nose, Mouth, Throat: moist mucous membranes, hearing normal, ears appear normal Cardiovascular: regular rate and rhythym, no murmur, rub, or gallop, pulses symmetric bilaterally, bradycardia, No JVD, No edema Peripheral Pulses: 2+: dorsalis-pedis (R), dorsalis-pedis (L) Respiratory: no respiratory distress, no rales or rhonchi, clear to auscultation Gastrointestinal: normoactive bowel sounds Skin: warm Musculoskeletal: full muscle strength, no muscle tenderness, normal joint ROM Neurologic: AAOx3, sensation intact bilaterally, CN II-XII Intact Psychiatric: interacting appropriately, not anxious, not encephalopathic Lab and Imaging 02/23/17 05:17 02/23/17 05:17 WBC 6.11 10^3/uL (3.80-9.50) 02/23/17 05:17 RBC 4.30 10^6/uL (4.40-6.38) L 02/23/17 05:17 Hgb 13.7 g/dL (13.7-17.5) 02/23/17 05:17 POC Hgb 18.0 gm/dL (14.5-17.3) H 02/22/17 07:00 Hct 39.7 % (40.0-51.0) L D 02/23/17 05:17 POC Hct 53 % (42.8-50.6) H 02/22/17 07:00 MCV 92.3 fL (81.5-99.8) 02/23/17 05:17 MCH 31.9 pg (27.9-34.1) 02/23/17 05: MCHC 34.5 g/dL (32.4-36.7) 02/23/17 05:17 RDW 12.1 % (11.5-15.2) 02/23/17 05:17 Plt Count 175 10^3/uL (150-400) D 02/23/17 05:17 MPV 8.8 fL (8.7-11.7) 02/23/17 05:17 Neut % (Auto) Not Reported 02/23/17 05:17 Lymph % (Auto) Not Reported 02/23/17 05:17 Hitchcock % (Auto) Not Reported 02/23/17 05:17 Eos % (Auto) Not Reported 02/23/17 05:17 Baso % (Auto) Not Reported 02/23/17 05:17 Nucleat RBC Rel Count 0.0 % (0.0-0.2) 02/23/17 05:17 Absolute Neuts (auto) Not Reported 02/23/17 05:17 Absolute Lymphs (auto) Not Reported 02/23/17 05:17 Absolute Monos (auto) Not Reported 02/23/17 05:17 Absolute Eos (auto) Not Reported 02/23/17 05:17 Absolute Basos (auto) Not Reported 02/23/17 05:17 Absolute Nucleated RBC 0.00 10^3/uL (0-0.01) 02/23/17 05:17 Immature Gran % Not Reported 02/23/17 05:17 Seg Neutrophils % 62 % 02/23/17 05:17 Lymphocytes % 35 % 02/23/17 05:17 Monocytes % 3 % 02/23/17 05:17 Immature Gran # Not Reported 02/23/17 05:17 Absolute Seg Neuts 3.79 10^/uL (1.70-6.50) 02/23/17 05:17 Absolute Lymphocytes 2.14 10^3/uL (1.00-3.00) 02/23/17 05:17 Absolute Monocytes 0.18 10^3/uL (0.30-0.80) L 02/23/17 05:17 Atypical Lymphocytes 1+ H 02/23/17 05:17 Smudge Cells 1+ H 02/23/17 05:17 Platelet Estimate ADEQUATE (ADEQ) 02/23/17 05:17 POC Sodium 144 mEq/L (134-144) 02/22/17 07:00 Sodium 141 mEq/L (134-144) 02/23/17 05:17 POC Potassium 3.1 mEq/L (3.3-5.0) L 02/22/17 07:00 Potassium 4.2 mEq/L (3.5-5.2) 02/23/17 05:17 POC Chloride 103 mEq/L (96-108) 02/22/17 07:00 Chloride 108 mEq/L (97-110) 02/23/17 05: Carbon Dioxide 27 mEq/l (22-31) 02/23/17 05:17 Anion Gap 6 mEq/L (8-16) L 02/23/17 05:17 POC BUN < 3 mg/dL (7-23) L 02/22/17 07:00 BUN 5 mg/dL (7-23) L 02/23/17 05:17 Creatinine 0.7 mg/dL (0.7-1.3) 02/23/17 05:17 POC Creatinine 0.7 mg/dL (0.8-1.5) L 02/22/17 07:00 Estimated GFR > 60 02/23/17 05:17 Glucose 101 mg/dL (70-100) H 02/23/17 05:17 POC Glucose 110 mg/dL (70-100) H 02/23/17 08:10 Calcium 8.1 mg/dL (8.5-10.4) L 02/23/17 05:17 Ionized Calcium 1.13 MMOL/L (1.12-1.30) 02/23/17 05: Phosphorus 4.3 mg/dL (2.5-4.5) 02/23/17 05: Magnesium 1.9 mg/dL (1.6-2.3) 02/23/17 05:17 Total Bilirubin 0.5 mg/dL (0.1-1.4) 02/22/17 12:30 Conjugated Bilirubin 0.2 mg/dL (0.0-0.5) 02/22/17 12:30 Unconjugated Bilirubin 0.3 mg/dL (0.0-1.1) 02/22/17 12:30 AST 25 IU/L (17-59) 02/22/17 12:30 ALT 32 IU/L (21-72) 02/22/17 12:30 Alkaline Phosphatase 68 IU/L (38-126) 02/22/17 12:30 Troponin I 0.058 ng/mL (0-0.034) H 02/23/17 05: Total Protein 6.9 g/dL (6.3-8.2) 02/22/17 12:30 Albumin 3.5 g/dL (3.5-5.0) 02/22/17 12:30 TSH 1.160 uIU/mL (0.465-4.680) 02/22/17 12:30 Urine Color YELLOW 02/22/17 22:00 Urine Appearance CLEAR 02/22/17 22:00 Urine pH 5.0 (5.0-7.5) 02/22/17 22:00 Ur Specific [place] 1.019 (1.002-1.030) 02/22/17 22:00 Urine Protein NEGATIVE (NEGATIVE) 02/22/17 22:00 Urine Ketones TRACE (NEGATIVE) H 02/22/17 22:00 Urine Blood NEGATIVE (NEGATIVE) 02/22/17 22:00 Urine Nitrate NEGATIVE (NEGATIVE) 02/22/17 22:00 Urine Bilirubin NEGATIVE (NEGATIVE) 02/22/17 22:00 Urine Urobilinogen NEGATIVE EU (0.2-1.0) 02/22/17 22:00 Ur Leukocyte Esterase NEGATIVE (NEGATIVE) 02/22/17 22:00 Ur Culture Indicated? NOT INDICATED (NI) 02/22/17 22:00 Urine Glucose NEGATIVE (NEGATIVE) 02/22/17 22:00 Urine Opiates Screen NEGATIVE ng/mL (NEGATIVE) 02/22/17 22:00 Urine Barbiturates NEGATIVE ng/mL (NEGATIVE) 02/22/17 22:00 Valproic Acid 25.4 mcg/mL (50.0-150.0) L 02/22/17 12:30 Ur Phencyclidine Scrn NEGATIVE ng/mL (NEGATIVE) 02/22/17 22:00 Ur Amphetamines Screen NEGATIVE ng/mL (NEGATIVE) 02/22/17 22:00 U Benzodiazepines Scrn NEGATIVE ng/mL (NEGATIVE) 02/22/17 22:00 Urine Cocaine Screen NEGATIVE ng/mL (NEGATIVE) 02/22/17 22:00 U Marijuana (THC) Screen NEGATIVE ng/mL (NEGATIVE) 02/22/17 22:00 Visualized and Interpreted imaging results: Yes Interpretation: MRI of brain without overt pathology noted Visualized and Interpreted EKG results: Yes EKG Interpretation: Positive for: other (Initial ECG with atrial fibrillation and RVR, but conversion to sinus bradycardia was noted (no ECG has been obtained with sinus rhythm)) Telemetry: currently: sinus bradycardia Echocardiogram: Normal left ventricular systolic ejection fraction. No clear valve pathology noted. Normal chamber dimensions were appreciated. Patient was in atrial fibrillation over the course of this study. A/P Assessment: Patient is a 46 y/o male with history of HTN, HLP, DM (type I), JUAN DIEGO (no therapy rendered, and uncertain if there is a formal diagnosis), colon cancer s/p colectomy, and newly noted atrial fibrillation ([id number] score of 2 for DM and HTN), who presented to [facility] via EMS post witnessed seizure. In the ER, the patient was noted to be in atrial fibrillation (new) with RVR and a mild elevation in cardiac biomarkers noted without nathalie ECG changes noted. No cardiovascular complaints of chest pains/pressure, PND, or orthopnea. Echocardiogram without pathology noted. Patient converted from atrial fibrillation to normal sinus/sinus bradycardia last night, and CCB therapy was stopped. Subcutaneous lovenox dose was increased to cover for CVA given the new atrial fibrillation history. Plan: (1) Would schedule the patient for Sally MPI testing given personal risks and family history with the minor elevation in troponin noted (2) Would arrange for 30 day event monitor to determine if there are more, asymptomatic episodes of atrial fibrillation noted (3) ASA therapy is recommended for the time being in light of this new diagnosis, and the patient's social situation (coumadin with need for INRs has greater risks than benefits for this patient, and the NOAC therapy is notably expensive) (4) Given the atrial fibrillation and the noted sleep apnea while in house, would arrange for a formal sleep study. This could be part of the etiology for the atrial fibrillation that was noted (5) Supplement electrolytes (6) Maintain therapy on statins for history of HLP, and maintain annual assessment of cholesterol and LFTs (7) Aggressive DM control should continue as at present, and would consider formal endocrinology consultation in the outpatient setting to ensure proper therapy for this patient (8) Blood pressure has been hypotensive in the setting of IV CCB therapy for atrial fibrillation rate control. With this therapy off, would reassess the patient's blood pressures and determine if further therapy is indicated. When the patient follows up with cardiology in the outpatient setting for review of 30 day event monitor, would readdress blood pressure at that time. Thank for for this consultation. Review of Systems - Review of Systems Constitutional: no symptoms reported EENTM: no symptoms reported Respiratory: no symptoms reported Cardiac: no symptoms reported Gastrointestinal/Abdominal: no symptoms reported Genitourinary: no symptoms Musculoskelatal: no symptoms Skin: no symptoms Neurological: seizure Hematologic/Lymphatic: no symptoms reported Immunologic/allergic: no symptoms reported All Other Systems: Reviewed and Negative
[2017-02-23 11:31] LABS: HEMOGLOBIN A1C 5.9 % (4.0-6.0)
--- NOTE | 2017-02-23 12:34 | CPEKG ---
Heart Rate: 66 RR Interval: 909 P-R Interval: 148 QRSD Interval: 88 QT Interval: 412 QTC Interval: 432 P Calvin: 47 QRS Calvin: -6 T Wave Calvin: 46 EKG Severity - NORMAL ECG - EKG Impression: SINUS RHYTHM Electronically Signed By: Jaz Beyer 24-Feb-2017 07:51:31
--- NOTE | 2017-02-23 13:56 | PDINTPN ---
Bench Worker Helper Progress Note Assessment/Plan: Assessment: Seizure. He has a history of a seizure disorder. Valproic acid levels were low on admission. Id he has got an extra dose of this. On Keppra as well, with levels from admission pending. No further seizure activity. His father does not think he has missed any doses of his seizure medications. Daily dosages may need to be increased. Atrial fibrillation: Resolved. On aspirin. Cardiology consultation appreciated. History of obstructive sleep apnea. He does have CPAP and apparently does use this at the detention although his use may be variable? History of diabetes mellitus: On insulin. History of tobacco use: Apparently fairly light, intermittent smoker. Plan: Continue current care. Continue anti seizure medications. For further cardiac evaluation as an outpatient. A cardiac stress test is recommended: Per Cardiology, he may be able to get this done prior to discharge. Okay to transfer to a medical-surgical bed at this point. Await levels regarding Keppra dosages. Subjective: No further seizures. Feels okay, better. Denies shortness of breath or pain. Objective: Vital Signs Temp Pulse Resp BP Pulse Ox 37.0 C 61 11 L 115/74 97 02/23/17 12:00 02/23/17 12:00 02/23/17 12:00 02/23/17 12:00 02/23/17 12:00 Laboratory Results 02/23/17 05:17 02/23/17 05:17 02/22/17 02/23/17 02/24/17 05:59 05:59 05:59 Intake Total 4016 Output Total 300 Balance 3716 Laboratory Tests 02/22/17 Unknown Levetiracetam Pending Echocardiogram: Normal right and left heart function. Physical Exam - Physical Exam General Appearance: alert, no apparent distress EENT: other (On room air) Neck: normal inspection (No JVD) Respiratory: lungs clear, decreased breath sounds (At bases), No rales, No rhonchi, No wheezing Cardiac/Chest: regular rate, rhythm Abdomen: normal bowel sounds, non-tender, soft Skin: normal color, warm/dry Extremities: pedal edema (Trace) Neuro/Psych: no motor/sensory deficits, No cognition abnormalities ICD10 Worksheet Patient Problems: Problems Problem Status Onset Diabetic ketoacidosis Acute Seizure disorder Acute Atrial fibrillation Acute
[2017-02-23 14:36] LABS: POTASSIUM 4.4 mEq/L (3.5-5.2)
--- NOTE | 2017-02-23 15:40 | HOSPPROG ---
Hospitalist Progress Note Assessment/Plan: 46 yo M with hx of DM, DD and seizure d/o admitted with seizure and a fib w/rvr # seizure: breakthrough seizure while on medications including keppra/depakote. Patient denies non compliance but hx limited by patients cognitive dysfunction related to DD. Levels of both depakote and keppra low and suspect non compliance playing a role. Patients father believes that is not the case, however patient currently residing in alf so unclear that anyone is helping him remember to take his medications. Will continue current meds and recheck levels either prior to dc or in f/u appt--will d/w pharmacy to be clear on when recheck of level appropriate. # a fib w/rvr: new onset as far as we know, though patient denies any sxs and has significantly limited memory so uncertain if that is indeed the case. converted to sinus karey on dilt gtt. Now off of rate control meds, on tx dose lmwh today but will dc on asa for chadsvasc of 2. Echo and labs unremarkable. Stress test pending. will need 30 day monitor and will f/u with cards for that. # elevated trop: suspect demand ischemia related to a fib and/or seizure. Stress test planned for either today or in am. # DM: presumably type 1 by hospital records available, appears to be well controlled on insulin glargine alone but will check a1c, sliding scale insulin started # HLD: continue statin # depression: continue prozac # dispo: IP status, multiple active medical issues as above Care plan reviewed with cardiology and pulmonary as well as on multidisciplinary care rounds. Further hx obtained from patients father present at bedside. Subjective: no acute overnight events, sleepy today but otherwise no complaints , no recurrent seizure, heart rate has come down Objective: Vital Signs Temp Pulse Resp BP Pulse Ox 37.0 C 61 11 L 115/74 97 02/23/17 12:00 02/23/17 12:00 02/23/17 12:00 02/23/17 12:00 02/23/17 12:00 Laboratory Results 02/23/17 05:17 02/23/17 14:00 02/22/17 02/23/17 02/24/17 05:59 05:59 05:59 Intake Total 4016 Output Total 300 Balance 3716 awake alert nad anicteric op clear rrr no mrg, rate in 60s cta b soft nt nd no cce warm dry well perfused oriented appropriate, cognitively delayed - Time Spent With Patient Time Spent with Patient: greater than 35 minutes Time Spent with Patient: Greater than 35 minutes spent on this patients care, greater than 50% of time spent counseling, educating, and coordinating care regarding the above mentioned plan. ICD10 Worksheet Patient Problems: Problems Problem Status Onset Diabetic ketoacidosis Acute Seizure disorder Acute Atrial fibrillation Acute
[2017-02-23 18:24] LABS: POTASSIUM 3.9 mEq/L (3.5-5.2)
[2017-02-23] MEDS ORDERED: POTASSIUM CL 10 MEQ TAB PO ONE (19:23)
[2017-02-24 04:57] LABS: IONIZED CALCIUM 1.14 MMOL/L (1.12-1.30)
[2017-02-24 04:59] LABS: % IMMATURE GRANULYOCYTES 0.2 % (0.0-1.1); ABSOLUTE IMMATURE GRANULOCYTES 0.01 10^3/uL (0.00-0.10); ADD DIFF? NO; ADD MORPH? NO; ADD SCAN? NO; ATYPICAL LYMPHOCYTE FLAG 10 (0-99); FRAGMENT RBC FLAG 0 (0-99); HEMATOCRIT 39.4 % (40.0-51.0); HEMOGLOBIN 13.6 g/dL (13.7-17.5); LEFT SHIFT FLG 0 (0-99); LIPEMIA HEMOLYSIS FLAG 90 (0-99); MEAN CELL HEMOGLOBIN 31.6 pg (27.9-34.1); MEAN CELL HEMOGLOBIN CONCENTR. 34.5 g/dL (32.4-36.7); MEAN CELL VOLUME 91.4 fL (81.5-99.8); MEAN PLATELET VOLUME 8.8 fL (8.7-11.7); PLATELET CLUMPS FLAG 0 (0-99); PLATELET COUNT 157 10^3/uL (150-400); RED BLOOD CELL COUNT 4.31 10^6/uL (4.40-6.38); RED CELL DISTRIBUTION WIDTH 11.6 % (11.5-15.2)
[2017-02-24 05:14] LABS: ANION GAP 8 mEq/L (8-16); CALCIUM 8.4 mg/dL (8.5-10.4); CARBON DIOXIDE 30 mEq/l (22-31); CHLORIDE 105 mEq/L (97-110); CREATININE 0.6 mg/dL (0.7-1.3); GLOMERULAR FILTRATION RATE > 60; GLUCOSE 92 mg/dL (70-100); MAGNESIUM 1.9 mg/dL (1.6-2.3); POTASSIUM 3.9 mEq/L (3.5-5.2); SODIUM 143 mEq/L (134-144)
[2017-02-24] MEDS: INSULIN LISPRO 100 UNIT/ML SC SCH ×2 (08:12→11:52)
[2017-02-24] MEDS ORDERED: POTASSIUM CL 10 MEQ TAB PO ONE (08:24)
[2017-02-24] MEDS: DIVALPROEX NA 500 MG TAB PO SCH (08:39)
[2017-02-24] MEDS: FLUoxetine 20 MG CAP PO SCH (08:39)
[2017-02-24] MEDS: INSULIN GLARGINE 100 UNITS/ML SYRINGE SC SCH (08:39)
[2017-02-24] MEDS: ENOXAPARIN 80 MG/0.8 ML SYR SC SCH (08:39)
[2017-02-24] MEDS: levETIRAcetam 500 MG TAB PO SCH (08:39)
[2017-02-24] MEDS: ATORVASTATIN CALCIUM 20 MG TAB PO SCH (08:39)
--- NOTE | 2017-02-24 09:55 | PDCARPN ---
Cardiology Progress Note Chief Complaint: No complaints voiced this morning Assessment/Plan: Assessment: 02-24-17 No issues overnight. Patient reported poor sleep. MPI is scheduled for this morning. No cardiovascular complaints were voiced. Patient has maintained normal sinus rhythm 02-23-17 Patient is a 46 y/o male with history of HTN, HLP, DM (type I), seizures (on medical therapy), JUAN DIEGO (untreated, and likely unformally diagnosed), and colon cancer, who presented to [facility] via EMS after witnessed tonic clonic seizure. Duration of the seizure was unknown. Patient voiced an awareness of confusion post seizure. No voiced complaints of chest pains or pressure. No PND or orthopnea. No recent fevers, chills, nausea, or emesis. Overall, the patient feels that he has been doing well. Currently lives in the homeless retirement and does get some sleep there. Food at the retirement is "fair". Both parents were present with the patient yesterday (and live in town). No history of CAD or cardiac events in the past. Mother with strong CAD history (CABG many years ago ). No regular or routine exercise. Patient reports not having a seizure for "many years". Yesterday, in the ER, the patient was noted to be in atrial fibrillation with rapid ventricular response. Given this arrhythmia, the patient was started on IV CCB therapy, and rates slowed with this therapy. Last night, when the patient was seen briefly, the patient converted to normal sinus rhythm and sinus bradycardia. Given slow heart rates and hypotension, the IV CCB therapy was reduced by 50%, and by the time I was seeing him last night, we stopped the therapy altogether. Today (02-23-17), the patient remains in normal sinus rhythm/sinus bradycardia. Concerns about CVA led to cessation of DVT dose of lovenox in favor of weight based protocol (1mg/kg at 80 mg SQ BID dosing). Plan: (1) MPI this morning. If negative, patient likely to be discharged - outpatient neurology follow up with revisitation of seizure - outpatient cardiology for 30 day event monitor and follow up (2) Formal sleep study given the pAF noted (3) Maintain aggressive DM control (4) Continue statin therapy Subjective: No cardiovascular complaints Reviewed/Discussed With: hospitalist, multidisciplinary team Time Spent With Patient: 15 minutes Objective: Vital Signs (8 Hrs) Temp Pulse BP Pulse Ox 02/24/17 08:16 95 02/24/17 08:00 36.4 C 60 110/62 95 Intake/Output (24 Hrs) 02/23/17 02/24/17 02/25/17 05:59 05:59 05:59 Intake Total 4016 1490 Output Total 300 Balance 3716 1490 Intake: Oral (ml) 600 1490 IV Infused (ml) 3416 Diltiazem 125 mg In D5w 51 125 ml @ Per Protocol IV CONT SANJAY Rx#:[id number] Ns 1,000 ml @ 150 mls/hr 2365 IV CONT SANJAY Rx#: [id number] Output: Urine (ml) 300 Toilet 300 Other: Weight 90.5 kg Number of Voids Toilet 1 2 Result Diagrams: 02/24/17 04:50 02/24/17 04:50 Cardiac Labs: Cardiac Lab Results (72 Hrs) 02/23/17 02/22/17 02/22/17 05:17 18:30 12:30 Troponin I 0.058 H 0.078 H 0.036 H EKG: normal sinus rhythm - Physical Exam Constitutional: WDWN, healthy appearing, no apparent distress Eyes: PERRL, EOMI Ears, Nose, Mouth, Throat: moist mucous membranes Cardiovascular: regular rate and rhythm, no murmurs, no rubs, no gallops Peripheral Pulses: 2+: dorsalis-pedis (R), dorsalis-pedis (L) Respiratory: clear to auscultate bilat, no crackles, no wheezes Gastrointestinal: normoactive bowel sounds Skin: no rashes, no edema Musculoskeletal: no muscular tenderness Neurologic: CN II-XII grossly intact Psychiatric: cooperative, following commands ICD10 Worksheet Patient Problems: Problems Problem Status Onset Atrial fibrillation Acute Seizure disorder Acute Diabetic ketoacidosis Acute
[2017-02-24] MEDS ORDERED: REGADENOSON 0.4 MG/5 ML SYR IVP ONE (10:30)
--- NOTE | 2017-02-24 11:48 | CPR ---
[f rep st] NONINVASIVE CARDIAC PROCEDURE REPORT DATE OF PROCEDURE: 02/24/2017 PROCEDURE PERFORMED: Nuclear Lexiscan stress test. Lexiscan ordered by Dr. Sheldon Ferraro. INDICATIONS: He has a history of: 1. Atrial fibrillation. 2. Chest discomfort. 3. Family history of coronary artery disease. FINDINGS: Resting EKG shows a sinus bradycardia with a rate of 57, blood pressure 106/82, oxygen sa turation 92%. EKG shows late R-wave progression in the anterior septal leads. No ischemic changes otherwise noted. TEST PORTION: Lexiscan was injected rapidly followed by a saline flush. Cardiolite was then inject ed followed by saline flush per protocol. His heart rate went up to 83, blood pressure 110/76, oxyg en saturation 99%. He had slight chest tightness after the injection. There were no EKG changes. RECOVERY: He spontaneously recovered with resting recovery blood pressure 108/72, recovery heart ra te 79, oxygen saturation 97%. Caffeine was given and the chest tightness did resolve spontaneously. There was no ectopy or EKG changes during recovery. He is comfortable and pain free at this time. He is stable for cardiac imaging. /[id number]/MODL
--- NOTE | 2017-02-24 14:17 | PDDCSUM ---
Discharge Summary Discharge Summary: Dates of service 02/22-02/24/17 Consultations: cardiology, neurology, stamping press operator Procedures performed: echocardiogram, MPI stress test, brain MRI, PICC placement Hospital course by problem: 46 yo M with hx of DM, DD and seizure d/o admitted with seizure and a fib w/rvr # seizure: neurology consulted, brain MRI without acute abnormality, both depakote and keppra levels low on admission but improved and wnl after resuming his home meds. Suspect breakthrough seizure due to med non compliance rather than too low of dosing. Resume home meds, f/u with neurology. # a fib w/rvr: new onset as far as we know, though patient denies any sxs and has significantly limited memory so uncertain if that is indeed the case. converted to sinus karey on dilt gtt. Echo and stress test unremarkable. Plan is for f/u with cardiology for 30 day heart monitoring. # elevated trop: suspect demand ischemia related to a fib and/or seizure. Stress test without ischemia # DM: presumably type 1 by hospital records available, continue home meds, A1c of 5.9 # HLD: continue statin # depression: continue prozac DC home--patient currently residing in homeless senior care but with plans to transition to [facility], f/u with cardiology and neurology in the coming 1 week Care plan reviewed with parents present at bedside > 35 min spent in dc, more than half in face to face counseling of patient and his family regarding f/u care plans
[2017-02-24 15:49] VITALS: BP 132/79; PULSE 59; RESP 14; TEMP 98.2; O2SAT 96
== END 2017-02-24 16:15 | disposition home or self-care (01) | DRG 310 ==
LOC: EDUNIT# → F2N 08:33
PROVIDERS: ADMIT Internal Medicine; ATTEND Internal Medicine
PROC: 02HV33Z Insertion of Infusion Device into Superior Vena Cava, Percutaneous Approach (ICD-10-PCS; principal; 2017-02-22)
DX: I48.91 Unspecified atrial fibrillation (principal); G40.409 Other generalized epilepsy and epileptic syndromes, not intractable, without status epilepticus; E10.9 Type 1 diabetes mellitus without complications; E78.5 Hyperlipidemia, unspecified; F32.9 Major depressive disorder, single episode, unspecified; I10 Essential (primary) hypertension; E87.6 Hypokalemia; G47.33 Obstructive sleep apnea (adult) (pediatric); Z79.4 Long term (current) use of insulin; Z59.0 Homelessness; Z72.0 Tobacco use; Z82.49 Family history of ischemic heart disease and other diseases of the circulatory system
CPT/HCPCS: 80177-90; 80307; 82947-QW; 96365; 96366; 97161-GP; 97165-GO; A9500; C1751; G0480; J1650; J1815; J1953; J2060; J2765; J2785; J3475

== ENCOUNTER 2017-03-19 12:53 | Emergency (ER) | payer MEDICAID ==
--- NOTE | 2017-03-19 13:14 | CPEKG ---
Heart Rate: 70 RR Interval: 857 P-R Interval: 144 QRSD Interval: 90 QT Interval: 384 QTC Interval: 415 P [place]: 31 QRS [place]: -19 T Wave [place]: 28 EKG Severity - OTHERWISE NORMAL ECG - EKG Impression: SINUS RHYTHM EKG Impression: BORDERLINE LEFT AXIS DEVIATION Electronically Signed By: Marciano Peraza 19-Mar-2017 20:38:36
--- NOTE | 2017-03-19 13:30 | EDPHY ---
H & P Stated Complaint: Right upper quad pain nausea since this am, Time Seen by Provider: 03/19/17 13:19 - Personal History Current Tetanus/Diphtheria Vaccine: Unsure Current Tetanus Diphtheria and Acellular Pertussis (TDAP): Unsure - Medical/Surgical History Hx Asthma: No Hx Chronic Respiratory Disease: No Hx Diabetes: Yes Hx Cardiac Disease: No Hx Renal Disease: No Hx Cirrhosis: No Hx Alcoholism: No Hx HIV/AIDS: No Hx Splenectomy or Spleen Trauma: No Other PMH: SEIZURE DISORDER, COLON CANCER, IDDM type 1 - Social History Smoking Status: Light smoker Constitutional: Initial Vital Signs Temperature (C) 36.6 C 03/19/17 13:01 Heart Rate 87 03/19/17 13:01 Respiratory Rate 16 03/19/17 13:01 Blood Pressure 143/58 H 03/19/17 13:01 O2 Sat (%) 95 03/19/17 13:01 O2 Delivery Mode Room Air Allergies/Adverse Reactions: No Known Allergies Allergy (Unverified 01/23/16 16:48) Home Medications: Medication Instructions Recorded Atorvastatin Calcium [Lipitor 20 20 mg PO DAILY 01/23/16 mg (*)] LEVETIRACETAM [Keppra 1000 mg] 1,000 mg PO BID 01/23/16 Insulin Glargine [Lantus 100 10 units SC DAILY #1 vial 01/24/16 UNITS/ML (*)] Divalproex Sodium [Depakote] 500 mg PO BID 02/22/17 FLUoxetine [Prozac 20 MG (*)] 40 mg PO BID 02/22/17 Acetaminophen [Tylenol 325mg (*)] 650 mg PO Q4HRS PRN #0 tab 02/24/17 Aspirin EC [Aspirin EC 81 mg (*)] 81 mg PO DAILY 30 Days 02/24/17 Departure - Departure Referrals: BRIDGER MARTINEZ [Primary Care Provider] - As per Instructions
--- NOTE | 2017-03-19 13:53 | EDPHY ---
H & P Stated Complaint: Right upper quad pain nausea since this am, Time Seen by Provider: 03/19/17 13:19 HPI/ROS: CHIEF COMPLAINT: Abdominal pain HISTORY OF PRESENT ILLNESS: 46-year-old homeless male history of diabetes arrives via private vehicle complaining of right lower quadrant abdominal pain since this morning with nausea. Last bowel movement this morning was normal with no melena or hematochezia. Last oral intake was dinner last evening. He is currently hungry. No urinary complaints. No testicular pain. No abdominal or testicle/genital trauma. He also is complaining of a nonproductive cough for the past 2 weeks. Daily smoker. No fever or chills. No chest pain. No back pain. No syncope or near syncope. PRIMARY CARE PROVIDER:[facility] REVIEW OF SYSTEMS: A ten point review of systems was performed and is negative with the exception of the items mentioned in the HPI PAST MEDICAL & SURGICAL HISTORY: History of colon cancer with possible colonic resection. Diabetes. Seizure disorder. Developmental delay. Hyperlipidemia. SOCIAL HISTORY: currently living at the nursing home. Daily smoker. PHYSICAL EXAM (Prior to examination, patient consented to physical exam, hands were washed and my usual and customary physical exam procedures followed) 1) GENERAL: sleeping, easily woken, alert and oriented. Appears to be in no acute distress. 2) HEAD: Normocephalic, atraumatic 3) HEENT: Pupils equal, round, reactive to light bilaterally. Sclera anicteric. 4) NECK: Full range of motion, no meningeal signs. 5) LUNGS: Clear auscultation bilaterally, no wheezes, no rhonchi, no retractions. Chest wall nontender 6) HEART: Regular rate and rhythm, no murmur, no heave, no gallop. 7) ABDOMEN: No guarding, no rebound, tender to palpation McBurney's point, negative Jones's, negative Rovsing's, negative peritoneal sign, 8) MUSCULOSKELETAL: Moving all extremities, no focal areas of tenderness, no obvious trauma. No peripheral edema or discoloration. 9) BACK: No CVA tenderness, no midline vertebral tenderness, no fluctuance, no step-off, no obvious trauma, no visual or palpable abnormality. 10) SKIN: No rash, no petechiae. 11) Psychiatric: Patient is oriented X 3, there is no agitation. 12) : Normal male external genitalia bilateral testicles nontender, cremasteric reflex present and brisk bilaterally, no asymmetry DIFFERENTIAL DIAGNOSIS: My differential diagnosis includes, but is not limited to, acute appendicitis, acute cholecystitis, bowel obstruction, acute pancreatitis, testicular torsion, gastritis and urinary tract infection. The patient understands that this diagnosis is provisional and can never be 100% accurate. This is a partial list of diagnoses considered. These considerations are based on history, physical exam, past history and reassessment. - Personal History Current Tetanus/Diphtheria Vaccine: Unsure Current Tetanus Diphtheria and Acellular Pertussis (TDAP): Unsure - Medical/Surgical History Hx Asthma: No Hx Chronic Respiratory Disease: No Hx Diabetes: Yes Hx Cardiac Disease: No Hx Renal Disease: No Hx Cirrhosis: No Hx Alcoholism: No Hx HIV/AIDS: No Hx Splenectomy or Spleen Trauma: No Other PMH: SEIZURE DISORDER, COLON CANCER, IDDM type 1 - Social History Smoking Status: Light smoker Constitutional: Initial Vital Signs Temperature (C) 36.6 C 03/19/17 13:01 Heart Rate 87 03/19/17 13:01 Respiratory Rate 16 03/19/17 13:01 Blood Pressure 143/58 H 03/19/17 13:01 O2 Sat (%) 95 03/19/17 13:01 O2 Delivery Mode Room Air Allergies/Adverse Reactions: No Known Allergies Allergy (Unverified 01/23/16 16:48) Home Medications: Medication Instructions Recorded Atorvastatin Calcium [Lipitor 20 20 mg PO DAILY 01/23/16 mg (*)] LEVETIRACETAM [Keppra 1000 mg] 1,000 mg PO BID 01/23/16 Insulin Glargine [Lantus 100 10 units SC DAILY #1 vial 01/24/16 UNITS/ML (*)] Divalproex Sodium [Depakote] 500 mg PO BID 02/22/17 FLUoxetine [Prozac 20 MG (*)] 40 mg PO BID 02/22/17 Acetaminophen [Tylenol 325mg (*)] 650 mg PO Q4HRS PRN #0 tab 02/24/17 Aspirin EC [Aspirin EC 81 mg (*)] 81 mg PO DAILY 30 Days 02/24/17 levOFLOXACIN [levAQUIN (*)] 750 mg PO DAILY #5 tab 03/19/17 Medical Decision Making - Diagnostics Imaging Results: Imaging Impressions Chest X-Ray 03/19/17 13:49 Impression: 1. Bands of subsegmental atelectasis suspected at the left lung base. No active cardiopulmonary disease seen. Images reviewed by myself ED Course/Re-evaluation: 1:50 p.m.: This patient is complaining primarily of right lower quadrant abdominal pain with focal tenderness at same location. He has a secondary complaint of a nonproductive cough for the past 2 weeks, maintain normal saturations with lungs clear bilaterally. He has no complaints of chest pain, dyspnea, back or flank pain, syncope or near syncope. Will obtain a chest x- ray as well. At this time I think that pulmonary embolus, MS, less than likely in this patient. Will obtain diagnostic studies and imaging of his abdomen. He has a history of colon cancer and has a laparotomy scar however he is not completely sure what this surgery was performed. 3:02 p.m.: Re-evaluation, sleeping , appears comfortable 4:20 p.m.: Re-evaluation, sleeping, appears comfortable 5:00 p.m.: Re-evaluation, sleeping. Discussed the imaging results with the parents showing no intra-abdominal acute abnormality. A left lower lobe pneumonia is visualized. I had a lengthy discussion with the parents about treatment plan. At this time he is maintaining normal saturations, does not assess states supplemental oxygen, not tachycardic, not tachypneic, breathing comfortably. I offered admission however the parents informed me that he has a permanent place to live at the homeless nursing home, he is very compliant with his medications and they see him on a daily basis and they will insure that he is staying compliant with his medications. Start the patient on oral Levaquin. I had a lengthy discussion with the parents that if you develop shortness of breath, chest pain or any other symptoms he needs to return to the ER immediately for re-evaluation. - Data Points Laboratory Results: Laboratory Results 03/19/17 15:28 03/19/17 15:28 03/19/17 03/19/17 03/19/17 16:52 15:28 15:28 WBC 17.25 10^3/uL H 10^3/uL (3.80-9.50) RBC 4.94 10^6/uL 10^6/uL (4.40-6.38) Hgb 15.6 g/dL g/dL (13.7-17.5) Hct 44.5 % % (40.0-51.0) MCV 90.1 fL fL (81.5-99.8) MCH 31.6 pg pg (27.9-34.1) MCHC 35.1 g/dL g/dL (32.4-36.7) RDW 11.6 % % (11.5-15.2) Plt Count 230 10^3/uL 10^3/uL (150-400) MPV 8.8 fL fL (8.7-11.7) Neut % (Auto) 77.6 % H % (39.3-74.2) Lymph % (Auto) 14.4 % L % (15.0-45.0) [place] % (Auto) 7.4 % % (4.5-13.0) Eos % (Auto) 0.0 % L % (0.6-7.6) Baso % (Auto) 0.1 % L % (0.3-1.7) Nucleat RBC Rel Count 0.0 % % (0.0-0.2) Absolute Neuts (auto) 13.38 10^3/uL H 10^3/uL (1.70-6.50) Absolute Lymphs (auto) 2.49 10^3/uL 10^3/uL (1.00-3.00) Absolute Monos (auto) 1.27 10^3/uL H 10^3/uL (0.30-0.80) Absolute Eos (auto) 0.00 10^3/uL L 10^3/uL (0.03-0.40) Absolute Basos (auto) 0.02 10^3/uL 10^3/uL (0.02-0.10) Absolute Nucleated RBC 0.00 10^3/uL 10^3/uL (0-0.01) Immature Gran % 0.5 % % (0.0-1.1) Immature Gran # 0.09 10^3/uL 10^3/uL (0.00-0.10) Sodium 139 mEq/L mEq/L (134-144) Potassium 3.9 mEq/L mEq/L (3.5-5.2) Chloride 103 mEq/L mEq/L (97-110) Carbon Dioxide 24 mEq/l mEq/l (22-31) Anion Gap 12 mEq/L mEq/L (8-16) BUN 7 mg/dL mg/dL (7-23) Creatinine 0.7 mg/dL mg/dL (0.7-1.3) Estimated GFR > 60 Glucose 143 mg/dL H mg/dL (70-100) Calcium 9.3 mg/dL mg/dL (8.5-10.4) Total Bilirubin 0.9 mg/dL mg/dL (0.1-1.4) Conjugated Bilirubin 0.4 mg/dL mg/dL (0.0-0.5) Unconjugated Bilirubin 0.5 mg/dL mg/dL (0.0-1.1) AST 20 IU/L IU/L (17-59) ALT 20 IU/L L IU/L (21-72) Alkaline Phosphatase 72 IU/L IU/L (38-126) Total Protein 7.0 g/dL g/dL (6.3-8.2) Albumin 3.9 g/dL g/dL (3.5-5.0) Lipase 76.0 IU/L IU/L (23-300) Urine Color YELLOW Urine Appearance CLEAR Urine pH 7.0 (5.0-7.5) Ur Specific [place] > 1.035 H (1.002-1.030) Urine Protein 1+ H (NEGATIVE) Urine Ketones TRACE H (NEGATIVE) Urine Blood NEGATIVE (NEGATIVE) Urine Nitrate NEGATIVE (NEGATIVE) Urine Bilirubin NEGATIVE (NEGATIVE) Urine Urobilinogen NEGATIVE EU EU (0.2-1.0) Ur Leukocyte Esterase NEGATIVE (NEGATIVE) Urine RBC 1-3 /hpf /hpf (0-3) Urine WBC 3-5 /hpf H /hpf (0-3) Ur Epithelial Cells 1+ /lpf /lpf (NONE-1+) Urine Mucus TRACE /lpf /lpf (NONE-1+) Urine Glucose NEGATIVE (NEGATIVE) Departure - Departure Disposition: Home, Routine, Self-Care Clinical Impression: Pneumonia Qualifiers: Pneumonia type: due to unspecified organism Laterality: left Lung location: lower lobe of lung Qualified Code(s): J18.1 - Lobar pneumonia, unspecified organism Condition: Good Instructions: Bacterial Pneumonia (ED) Additional Instructions: Return to the ER if you develop shortness of breath, chest pain, or any other symptoms that concern you. Referrals: BRIDGER MARTINEZ [Primary Care Provider] - 03/23/17 Prescriptions: levOFLOXACIN [levAQUIN (*)] 750 mg PO DAILY #5 tab
[2017-03-19 15:35] LABS: % IMMATURE GRANULYOCYTES 0.5 % (0.0-1.1); ABSOLUTE IMMATURE GRANULOCYTES 0.09 10^3/uL (0.00-0.10); ADD DIFF? NO; ADD MORPH? NO; ADD SCAN? NO; ATYPICAL LYMPHOCYTE FLAG 10 (0-99); FRAGMENT RBC FLAG 0 (0-99); HEMATOCRIT 44.5 % (40.0-51.0); HEMOGLOBIN 15.6 g/dL (13.7-17.5); LEFT SHIFT FLG 10 (0-99); LIPEMIA HEMOLYSIS FLAG 90 (0-99); MEAN CELL HEMOGLOBIN 31.6 pg (27.9-34.1); MEAN CELL HEMOGLOBIN CONCENTR. 35.1 g/dL (32.4-36.7); MEAN CELL VOLUME 90.1 fL (81.5-99.8); MEAN PLATELET VOLUME 8.8 fL (8.7-11.7); PLATELET CLUMPS FLAG 0 (0-99); PLATELET COUNT 230 10^3/uL (150-400); RED BLOOD CELL COUNT 4.94 10^6/uL (4.40-6.38); RED CELL DISTRIBUTION WIDTH 11.6 % (11.5-15.2)
[2017-03-19 15:44] LABS: ALANINE AMINOTRANSFERASE 20 IU/L (21-72); ALBUMIN 3.9 g/dL (3.5-5.0); ALKALINE PHOSPHATASE 72 IU/L (38-126); ANION GAP 12 mEq/L (8-16); ASPARTATE AMINOTRANSFERASE 20 IU/L (17-59); BILIRUBIN,TOTAL 0.9 mg/dL (0.1-1.4); BILIRUBIN-CONJUGATED 0.4 mg/dL (0.0-0.5); BILIRUBIN-UNCONJUGATED 0.5 mg/dL (0.0-1.1); CALCIUM 9.3 mg/dL (8.5-10.4); CARBON DIOXIDE 24 mEq/l (22-31); CHLORIDE 103 mEq/L (97-110); CREATININE 0.7 mg/dL (0.7-1.3); GLOMERULAR FILTRATION RATE > 60; GLUCOSE 143 mg/dL (70-100); POTASSIUM 3.9 mEq/L (3.5-5.2); SODIUM 139 mEq/L (134-144)
[2017-03-19] MEDS ORDERED: IOPAMIDOL (ISOVUE-300) 100 ML BTL ONE (16:28)
[2017-03-19 16:49] VITALS: RESP 20
[2017-03-19 17:02] LABS: COLOR YELLOW; LEUKOCYTE ESTERASE,URINE NEGATIVE (NEGATIVE); NITRITE,URINE NEGATIVE (NEGATIVE)
[2017-03-19 17:05] LABS: MUCUS TRACE /lpf (NONE-1+)
[2017-03-19] MEDS ORDERED: ACETAMINOPHEN 500 MG TAB PO ONE (17:26)
[2017-03-19 17:57] VITALS: BP 117/66; PULSE 83; TEMP 99.3; O2SAT 93
[2017-03-19] MEDS ORDERED: CEFEPIME HCL 2 GM in D5W 100 ML IV SCH (22:00)
== END 2017-03-19 17:57 | disposition home or self-care (01) ==
DX: J18.9 Pneumonia, unspecified organism (principal); E10.9 Type 1 diabetes mellitus without complications; F17.200 Nicotine dependence, unspecified, uncomplicated; Z79.82 Long term (current) use of aspirin; Z85.038 Personal history of other malignant neoplasm of large intestine
CPT/HCPCS: J0692; Q9967

== ENCOUNTER 2017-03-27 16:05 | Emergency (ER) | payer MEDICAID ==
--- NOTE | 2017-03-27 16:13 | EDPHY ---
H & P Time Seen by Provider: 03/27/17 16:05 HPI/ROS: CHIEF COMPLAINT: Fall HISTORY OF PRESENT ILLNESS: This is a 46-year-old male brought into the emergency department by EMS. Patient states him and his brother were walking to the store he tripped over a tree stump landing on his left knee cutting his left lower leg. Patient states no LOC, no syncope, he did get up and started noticing a lot of blood on the cut of his lower left leg. Denies any other injuries REVIEW OF SYSTEMS: Constitutional: No fever, no chills. Eyes: No discharge. No blurred vision ENT: No sore throat. Cardiovascular: No chest pain, no palpitations. Respiratory: No cough, no shortness of breath. Gastrointestinal: No abdominal pain, no vomiting. Genitourinary: No hematuria. Musculoskeletal: No back pain. Left lower leg pain with laceration Skin: No rashes. Neurological: No headache. No dizziness no syncope Smoking Status: Light smoker Physical Exam: General Appearance: Alert, no distress. HEEN: Pupils equal and round no pallor or injection. Mucous membranes moist, no oral lacerations or injuries. No malocclusion abrasion noted to left side of lower chin no bleeding Respiratory: There are no retractions, nonlabored respiratory effort Cardiovascular: Regular rate and rhythm. Gastrointestinal: Abdomen is soft and nontender, no masses, bowel sounds normal. Neurological: No focal deficits Skin: Warm and dry, no rashes. Musculoskeletal: Vertebral cervical spine nontender on palpation full range of motion Extremities: Superficial laceration 1 cm noted left lateral aspect of lower extremity. No obvious deformity. full range of motion. Positive CMS intact Psychiatric: Patient is oriented X 3, there is no agitation. Constitutional: Initial Vital Signs Temperature (C) 36.7 C 03/27/17 16:05 Heart Rate 63 03/27/17 16:05 Respiratory Rate 18 03/27/17 16:05 Blood Pressure 117/82 H 03/27/17 16:05 O2 Sat (%) 96 03/27/17 16:05 O2 Delivery Mode Room Air Allergies/Adverse Reactions: No Known Allergies Allergy (Unverified 01/23/16 16:48) Home Medications: Medication Instructions Recorded Atorvastatin Calcium [Lipitor 20 20 mg PO DAILY 01/23/16 mg (*)] LEVETIRACETAM [Keppra 1000 mg] 1,000 mg PO BID 01/23/16 Insulin Glargine [Lantus 100 10 units SC DAILY #1 vial 01/24/16 UNITS/ML (*)] Divalproex Sodium [Depakote] 500 mg PO BID 02/22/17 FLUoxetine [Prozac 20 MG (*)] 40 mg PO BID 02/22/17 Acetaminophen [Tylenol 325mg (*)] 650 mg PO Q4HRS PRN #0 tab 02/24/17 Aspirin EC [Aspirin EC 81 mg (*)] 81 mg PO DAILY 30 Days 02/24/17 Medical Decision Making Procedures: Laceration repair with skin glue. The 0.5cm laceration on the left distal aspect of lower extremity. The wound was cleaned and explored to its base with a gloved finger. There were no deep structures involved. The wound was repaired with tissue adhesive. The procedure was performed by myself. Dressing placed ED Course/Re-evaluation: Discussed ED plan of care: Wound irrigation. Reassured patient no x-rays needed Differential Diagnosis: Other differential diagnosis considered but not limited to foreign body, abrasion and obvious deformity Departure - Departure Disposition: Home, Routine, Self-Care Clinical Impression: Laceration Condition: Good Instructions: Laceration (ED), Skin Adhesive Care (ED) Additional Instructions: Discussed discharge instructions 1. Keep wound clean and dry with daily dressings, 2. Monitor for any infection, such as: Redness, red streaks, pus and fever Referrals: Patient,NotPresent [Unknown] - As per Instructions [facility],. [Clinic] - As per Instructions
[2017-03-27 16:17] VITALS: RESP 18; O2SAT 96
[2017-03-27] MEDS ORDERED: SKIN ADHESIVE (DERMABOND) 1 EACH TP ONE (16:27)
[2017-03-27 16:55] VITALS: BP 124/85; PULSE 68; TEMP 98.4
== END 2017-03-27 16:53 | disposition home or self-care (01) ==
LOC: EDUNIT#
PROC: 0HQLXZZ Repair Left Lower Leg Skin, External Approach (ICD-10-PCS; principal; 2017-03-27)
DX: S81.012A Laceration without foreign body, left knee, initial encounter (principal); F17.200 Nicotine dependence, unspecified, uncomplicated; Z79.82 Long term (current) use of aspirin; Z79.4 Long term (current) use of insulin; W01.198A Fall on same level from slipping, tripping and stumbling with subsequent striking against other object, initial encounter; Y92.512 Supermarket, store or market as the place of occurrence of the external cause; Y99.8 Other external cause status; Y93.01 Activity, walking, marching and hiking

== ENCOUNTER 2018-10-31 19:58 | Emergency (ER) | payer MEDICAID ==
[2018-10-31] MEDS ORDERED: METOCLOPRAMIDE 10 MG/2 ML VIAL ONE (20:54)
[2018-10-31] MEDS ORDERED: METOCLOPRAMIDE 10 MG/2 ML VIAL IVP ONE (20:59)
[2018-10-31] MEDS ORDERED: NS 1,000 ML IV ONE (20:59)
[2018-10-31 21:04] LABS: PLATELET COUNT 212 10^3/uL (150-400)
--- NOTE | 2018-10-31 21:19 | EDPHY ---
HPI/HX/ROS/PE/MDM Narrative: CLINICAL IMPRESSION: Seizure, scalp abrasion ASSESSMENT/PLAN: Patient is a 48-year-old male with a history of epilepsy, paroxysmal atrial fibrillation and diabetes who presents to the emergency department after he sustained a witnessed tonic colonic seizure. Patient is alert and oriented on arrival and in no acute distress, complains of mild discomfort at site of impact frontal scalp. His neurological exam is grossly normal with no focal deficit. Examination reveals abrasion over the forehead and crown. CT head revealed no acute intracranial abnormality or evidence of skull fracture. CBC revealed no evidence of leukocytosis or anemia. His vital signs were reviewed and there were no findings to suggest sepsis or serious bacterial illness. Valproic acid level undetectable. Venous pH was normal, basic metabolic panel with no metabolic abnormality, normal bicarb and no gap. There were no findings to suggest DKA or acute kidney injury. An ECG was obtained which revealed normal sinus rhythm- no evidence of atrial fibrillation or ischemia, reviewed by Dr. Nazario. The patient was unsure which seizure medication he was still taking- according to his last records he takes both Depakote and Keppra. The patient was given a 1000 mg of Keppra in the emergency department and was given refill prescriptions for both his Keppra and Depakote. History and physical examination is consistent with tonic clonic type seizure. The patient was observed for a period of time, his neurological exam remained grossly normal with no focal deficit and he was at his baseline in regards to his mental status. The patient had no further concerns. The patient is well established with his neurologist in [place] and will schedule follow-up appointment, we have also provided another local referral should he need it. Strict return precautions were discussed- he will return to the emergency department for altered mentation, lethargy, vomiting, seizure, abnormal movements or for any other concerning symptom. Patient verbalizes understanding and is in agreement with this plan. Case discussed with and patient seen by Dr. Nazario. DIFFERENTIAL DX: Seizure including but not limited to electrolyte abnormality, alcohol withdrawal , medication noncompliance, head injury, and breakthrough seizure. ED COURSE: 9:15 p.m.: Radiology with no acute findings on head CT. CHIEF COMPLAINT: Seizure HPI: Patient is a 48-year-old male with a longstanding history of a seizure disorder , paroxysmal atrial fibrillation and diabetes who presents to the emergency department after a tonic colonic seizure that occurred just prior to arrival. Patient currently lives in a [facility], [facility]. Patient remembers feeling unwell, mildly dizzy and then does not recall events after that. Patient had a witnessed tonic clonic seizure, hit his head during the seizure. Patient was postictal upon EMS arrival and presents to the emergency department complaining of nausea, emesis x1 and mild headache. Patient does not recall exactly what medications he takes for his seizure disorder however states that he is compliant daily. Patient reports of history of elevated blood sugars in DKA however his blood sugars have been running normal for him. Patient denies any recent fever, chills, chest pain, shortness of breath or abdominal pain. He denies any urinary symptoms to include dysuria, hematuria or increased frequency. Last seizure he believes occurred approximately 2 years ago. PMH: Diabetes mellitus, seizure disorder, hypertension, hyperlipidemia and paroxysmal atrial fibrillation Pertinent Past Surgical History: Noncontributory Family History: Noncontributory Social History: Denies smoking, denies alcohol and denies illicit drug use REVIEW OF SYSTEMS: All other systems negative Constitutional: No fever, no chills, appetite change. Eyes: No discharge, vision change ENT: No sore throat, congestion, ear pain. Cardiovascular: No chest pain, no palpitations. Respiratory: No cough, no shortness of breath. Gastrointestinal: Nausea and vomiting. No abdominal pain, diarrhea. Genitourinary: No hematuria, dysuria, flank pain Musculoskeletal: No back pain, joint swelling, joint pain, myalgias. Skin: No rashes, color change. Neurological: Mild headache, seizure. No dizziness, weakness. PHYSICAL EXAM: General Appearance: Alert, oriented, appropriate, cooperative, NAD, well hydrated, non-toxic appearing, VSS, no hypoxia. HEENT: Normocephalic, abrasion noted across the forehead onto crown. Bilateral external ears are normal, TMs are normal appearing without evidence of hemotympanum. No Singh sign or raccoon eyes. No nasal bridge tenderness, dried blood in bilateral nares. No septal hematoma or septal perforation. Oropharynx clear, no malocclusion and no evidence of dental or oral trauma. No mandibular tenderness Eyes: PERRLA, no acute vision change, nystagmus, swelling, discharge, pain or photosensitivity. Conjunctiva pink, no pallor or injection Neck: Supple, nontender, no lymphadenopathy, no midline pain, FROM, no meningismus. Respiratory: There are no retractions, lungs are clear to auscultation. Cardiac: Regular rate and rhythm, no murmurs or gallops. Gastrointestinal: Abdomen is soft, nontender, bowel sounds normal, no masses/ hernia, no rigidity, guarding or focal peritoneal findings. Neurological: Alert and oriented x 3, CN 2-12 grossly intact, normal gait no ataxia, DTR's intact, normal sensation and strength Skin: Warm, dry, no rashes, no nodules on palpation. Musculoskeletal: Extremities are symmetrical, full range of motion, no tenderness, deformity, swelling, or erythema. Psychiatric: Patient is oriented X 3, there is no agitation. MEDICAL DECISION MAKING: Patient was seen with Dr. Nazario. Diagnosis: Seizure, scalp abrasion. New, requires workup Summary: See Assessment and Plan for summary of ED visit Clinical lab tests: ordered / reviewed. Independent visualization of images, tracing, or specimens: Yes. Decision to obtain medical records or history from someone other than the patient: Yes Review / Summarize previous medical records: Yes Discussed patient with another provider: Yes, Dr. Nazario. Patient Progress: Stable, discharged home. (Joan Villavicencio) ED Course: EKG: Complete interpretation has been separately recorded in the [facility] archive. Summary impression: Sinus rhythm, rate 68 (Dinesh Nazario) MDM: Independent physician evaluation: I evaluated and participated in the management of the patient. I also evaluated the patient independently. My co-signature indicates that I have reviewed this chart and I agree with the findings and plan of care as documented. My personal H&P findings include: Patient presents to the ED after a tonic-clonic seizure that occurred earlier today. The patient does have a history of epilepsy. The patient had previously been on Keppra and Depakote according to his hospital records. The patient is unable to recall which anti seizure medications he takes. He reports he sees a neurologist [place] however does not remember the physician's name. The patient did strike his head during the seizure today. He complains of a mild frontal headache. The patient did have 1 episode of vomiting after the seizure. Physical exam: General Appearance: Alert, no distress Head: Scalp hematoma with small abrasion noted to forehead Eyes: Pupils equal, round, reactive ENT, Mouth: No hemotympanum, tongue bite noted to anterior aspect of tongue Neck: Nontender, trachea midline Respiratory: No chest wall tender, no subcutaneous air, lungs clear bilaterally Cardiovascular: Regular rate and rhythm Abdomen: Abdomen is soft and nontender, pelvis stable Skin: No lacerations, No abrasion Back: No midline T/L/S pain Extremities: Nontender, full range of motion Neurological: A&Ox3, normal motor function, normal sensory exam ED course: Patient presents the ED after a seizure. The patient initially was postictal however has cleared. The patient does plan on following up with his neurologist and was feel this week. The patient is uncertain which anti seizure medication he takes. The patient was observed in the emergency department without evidence of recurrent seizure. Given the patient's head trauma he was taken for CT scan which demonstrated no evidence of intracranial hemorrhage or skull fracture. The patient's Depakote level was undetectable. The patient was given a g Keppra in the emergency department orally. The patient was observed for several hours without evidence of recurrent seizure. Patient will be discharged home with refills of his Keppra and Depakote. The patient is given the contact number of our local neurologist who would be happy to see him in follow-up if he no longer is able to be seen by a neurologist in [place]. (Dinesh Nazario) - Data Points Imaging Results: Imaging Impressions Head CT 10/31/18 20:33 Impression: 1. No acute intracranial findings. 2. Diffuse cerebral atrophy with periventricular and subcortical low attenuation consistent with chronic microvascular ischemic gliosis. 3. Additional findings as above. Findings discussed with YOHANNES Jones 10/31/2018 at 21:09. Laboratory Results: Laboratory Results 10/31/18 20:39 10/31/18 20:39 10/31/18 10/31/18 10/31/18 20:50 20:39 20:39 WBC RBC Hgb Hct MCV MCH MCHC RDW Plt Count MPV Neut % (Auto) Lymph % (Auto) Kemper % (Auto) Eos % (Auto) Baso % (Auto) Nucleat RBC Rel Count Absolute Neuts (auto) Absolute Lymphs (auto) Absolute Monos (auto) Absolute Eos (auto) Absolute Basos (auto) Absolute Nucleated RBC Immature Gran % Immature Gran # VBG pH 7.33 (7.31-7.42) Sodium 136 mEq/L mEq/L (135-145) Potassium 3.6 mEq/L mEq/L (3.5-5.2) Chloride 102 mEq/L mEq/L (97-110) Carbon Dioxide 23 mEq/l mEq/l (22-31) Anion Gap 11 mEq/L mEq/L (6-14) BUN 9 mg/dL mg/dL (7-23) Creatinine 0.9 mg/dL mg/dL (0.7-1.3) Estimated GFR > 60 Glucose 190 mg/dL H mg/dL (70-100) Calcium 9.3 mg/dL mg/dL (8.5-10.4) Valproic Acid < 10.0 mcg/mL L mcg/mL (50.0-150.0) 10/31/18 20:39 WBC 8.02 10^3/uL 10^3/uL (3.80-9.50) RBC 5.58 10^6/uL 10^6/uL (4.40-6.38) Hgb 17.4 g/dL g/dL (13.7-17.5) Hct 48.8 % % (40.0-51.0) MCV 87.5 fL fL (81.5-99.8) MCH 31.2 pg pg (27.9-34.1) MCHC 35.7 g/dL g/dL (32.4-36.7) RDW 11.4 % L % (11.5-15.2) Plt Count 212 10^3/uL 10^3/uL (150-400) MPV 8.9 fL fL (8.7-11.7) Neut % (Auto) 69.1 % % (39.3-74.2) Lymph % (Auto) 25.1 % % (15.0-45.0) Kemper % (Auto) 4.9 % % (4.5-13.0) Eos % (Auto) 0.6 % % (0.6-7.6) Baso % (Auto) 0.1 % L % (0.3-1.7) Nucleat RBC Rel Count 0.0 % % (0.0-0.2) Absolute Neuts (auto) 5.54 10^3/uL 10^3/uL (1.70-6.50) Absolute Lymphs (auto) 2.01 10^3/uL 10^3/uL (1.00-3.00) Absolute Monos (auto) 0.39 10^3/uL 10^3/uL (0.30-0.80) Absolute Eos (auto) 0.05 10^3/uL 10^3/uL (0.03-0.40) Absolute Basos (auto) 0.01 10^3/uL L 10^3/uL (0.02-0.10) Absolute Nucleated RBC 0.00 10^3/uL 10^3/uL (0-0.01) Immature Gran % 0.2 % % (0.0-1.1) Immature Gran # 0.02 10^3/uL 10^3/uL (0.00-0.10) VBG pH Sodium Potassium Chloride Carbon Dioxide Anion Gap BUN Creatinine Estimated GFR Glucose Calcium Valproic Acid Medications Given: Discontinued Medications Sodium Chloride (Ns) 1,000 mls @ 0 mls/hr IV EDNOW ONE; Wide Open PRN Reason: Protocol Stop: 10/31/18 21:00 Last Admin: 10/31/18 21:00 Dose: 1,000 mls Levetiracetam (Keppra) 1,000 mg PO EDNOW ONE Stop: 10/31/18 22:11 Last Admin: 10/31/18 22:41 Dose: 1,000 mg Metoclopramide HCl (Reglan Injection) 10 mg IVP EDNOW ONE Stop: 10/31/18 21:00 Last Admin: 10/31/18 21:00 Dose: 10 mg General Time Seen by Provider: 10/31/18 20:23 Initial Vital Signs: Initial Vital Signs Temperature (C) 36.7 C 10/31/18 19:59 Heart Rate 88 10/31/18 19:59 Respiratory Rate 18 10/31/18 19:59 Blood Pressure 133/91 H 10/31/18 19:59 O2 Sat (%) 92 10/31/18 19:59 O2 Delivery Mode Room Air O2 (L/minute) 2 Allergies/Adverse Reactions: No Known Allergies Allergy (Unverified 10/31/18 20:28) Home Medications: Medication Instructions Recorded Atorvastatin Calcium [Lipitor 20 20 mg PO DAILY 01/23/16 mg (*)] LEVETIRACETAM [Keppra 1000 mg] 1,000 mg PO BID 01/23/16 Insulin Glargine [Lantus 100 10 units SC DAILY #1 vial 01/24/16 UNITS/ML] Divalproex Sodium [Depakote] 500 mg PO BID 02/22/17 FLUoxetine [Prozac 20 MG (*)] 40 mg PO BID 02/22/17 Acetaminophen [Tylenol 325mg (*)] 650 mg PO Q4HRS PRN #0 tab 02/24/17 Aspirin EC [Aspirin EC 81 mg (*)] 81 mg PO DAILY 30 Days 02/24/17 Divalproex [Depakote] 500 mg PO BID #60 tab 10/31/18 LEVETIRACETAM [Keppra 1000 mg] 1,000 mg PO BID #60 tab 10/31/18 Departure - Departure Disposition: Home, Routine, Self-Care Clinical Impression: Seizure Condition: Good Instructions: Epilepsy (ED) Additional Instructions: 1. Please take your Depakote and Keppra as prescribed. You have been provided refills of these medications. 2. Please follow-up with your neurologist as scheduled. You have also been given the number of a neurologist here [facility] who would be happy to see you in follow-up. 3. Return to the ED for any recurrent seizure, severe headache or other concerns. Referrals: Freddy Miles MD [Medical Doctor] - As per Instructions Prescriptions: Divalproex [Depakote] 500 mg PO BID #60 tab LEVETIRACETAM [Keppra 1000 mg] 1,000 mg PO BID #60 tab
--- NOTE | 2018-10-31 22:02 | CPEKG ---
Test Reason : OPEN Blood Pressure : / mmHG Vent. Rate : 068 BPM Atrial Rate : 068 BPM P-R Int : 150 ms QRS Dur : 105 ms QT Int : 421 ms P-R-T Axes : 056 -08 044 degrees QTc Int : 448 ms Sinus rhythm Confirmed by Dinesh Nazario ([id number]) on 10/31/2018 10:01:25 PM Referred By: Confirmed By:Dinesh Nazario
[2018-10-31] MEDS ORDERED: levETIRAcetam 500 MG TAB PO ONE (22:10)
[2018-11-01 01:52] VITALS: BP 135/88
== END 2018-11-01 01:25 | disposition home or self-care (01) ==
LOC: EDUNIT#
DX: S00.81XA Abrasion of other part of head, initial encounter (principal); S00.03XA Contusion of scalp, initial encounter; G40.909 Epilepsy, unspecified, not intractable, without status epilepticus; E11.9 Type 2 diabetes mellitus without complications; I48.0 Paroxysmal atrial fibrillation; W19.XXXA Unspecified fall, initial encounter; Y92.9 Unspecified place or not applicable; Y93.9 Activity, unspecified; Y99.9 Unspecified external cause status
CPT/HCPCS: 96374; J2765

== ENCOUNTER 2019-02-16 06:14 | Emergency (ER) | payer MEDICAID ==
[2019-02-16] MEDS ORDERED: NS 1,000 ML IV ONE (06:16)
[2019-02-16] MEDS ORDERED: ONDANSETRON 4 MG/2 ML VIAL IVP ONE ×2 (06:16→09:06)
[2019-02-16] MEDS ORDERED: levETIRAcetam 1000MG/NACL 100 ML IV ONE (06:17)
[2019-02-16] MEDS ORDERED: POTASSIUM CL 20 MEQ PKT PO ONE (06:48)
[2019-02-16] MEDS ORDERED: DIVALPROEX NA 500 MG TAB PO ONE (08:45)
== END 2019-02-16 09:55 | disposition home or self-care (01) ==
DX: R56.9 Unspecified convulsions (principal); E87.6 Hypokalemia; E86.9 Volume depletion, unspecified; Z85.038 Personal history of other malignant neoplasm of large intestine; Z59.0 Homelessness